=== PATIENT | male | born 1945 | race Caucasian/White ===

== ENCOUNTER 2016-08-14 13:35 | Inpatient (IN) | payer MEDICARE ==
[~2016-08-14] VITALS: Ht 175.2 cm; Wt 94.5 kg
--- NOTE | ~2016-08-14 | CON ---
[place], [place] REPORT OF CONSULTATION NAME: CORNELIO HUGHES UNIT #: [id number] ROOM: 412 DOCTOR: XENIA ORTEGASOPHIA BIRTHDATE: [birth year] DATE: 08/16/16 ATTEND. PHYS.: JACOBY HAMMER DO HISTORY OF PRESENT ILLNESS: 71-year-old male has presented with complaint of several bowel movements before his admission and he has had up to five bowel movements. The frequency of bowel movements has reorganized and he is not having any bowel movements any longer. There was no blood in the stool. He has had a colonoscopy apparently six months ago. PAST MEDICAL HISTORY: Esophageal reflux disease, degenerative joint disease, gout, cerebrovascular accident, hypertension, hyperlipidemia, macrocytic anemia. PAST SURGICAL HISTORY: Endarterectomy, ear. SOCIAL HISTORY: Smoker and has not drank alcohol. FAMILY HISTORY: Noncontributory. ALLERGIES: To no known medications. MEDICATIONS: List has been reviewed including aspirin and Omeprazole. REVIEW OF SYSTEMS: HEENT: Denies double vision or blurred vision. RESPIRATORY: Denies acute shortness of breath. CARDIOVASCULAR: Denies acute chest pain. DIGESTIVE SYSTEM: No hematemesis. Resolved diarrhea. PHYSICAL EXAMINATION: VITAL SIGNS: Stable. GENERAL: Obese patient. HEENT: Head normocephalic, nontraumatic. Mouth and buccal mucosa benign. NECK: Supple. No thyromegaly. No cervical lymphadenopathy. CHEST: Symmetric anatomy. Decreased air entry in general. HEART: Normal sinus rhythm. No gallop or murmur. ABDOMEN: Obese, large, soft. No hepatosplenomegaly. Bowel sounds present. No pulsatile mass. EXTREMITIES: No cyanosis. No pedal edema. NEUROLOGIC: Alert and oriented to time, place, person. Labs and records reviewed. H&H remains about 11 and 44. Stool culture has been negative. Basic metabolic panel - potassium 3.5, BUN and creatinine 19 and 1.5. Ova and parasite have been negative. C-diff has been negative. Hemoglobin A1C 6.5. Basic metabolic panel has been reassessed periodically. IMPRESSION: Three days of diarrhea likely has to do with a viral gastroenteritis, hyperglycemia, obesity, GERD, hypertension, hyperlipidemia, peripheral neuropathy, gout. All has been recognized. Other adjunctive diagnoses as outlined in past medical history and past surgical history. PLAN AND DISCUSSION: We are going to consider discharge of patient and follow up as outpatient. Should his diarrhea recur, then reassessment. He had colonoscopy six months ago and has been told it was normal. We are going to be satisfied with the answer that we have. Thank you very much indeed. [place], [place] REPORT OF CONSULTATION NAME: CORNELIO HUGHES UNIT #: [id number] ROOM: [facility] DOCTOR: XENIA ORTEGA,[facility] BIRTHDATE: [birth year] M.D. [f rep dict dr] CM:CONSTR:REPORT OF CONSULTATION 1530 [place] 08/19/16 1602 JERMAIN LEUNG.SB
[~2016-08-14 13:35] MED LIST: ALLOPURINOL300 MG PO; AMLODIPINE BESY1 TAB PO; ASPIRIN325 MG PO; ATENOLOL50 M1 PO; CLONIDINE0.3 MG PO; D-1000 185 MG-11 TAB PO; FISH OIL 1,2001 EAC1 PO; HYDROCHLOROTHIA25 M1 PO; NEURONTIN300 MG PO; NORCO 5-325 TA1 EACH PO; NORCO 7.5-3251 EACH PO; OMEPRAZOLE20 M2 PO; PHARMASSURE FO0.4 MG PO; SIMVASTATIN20 MG PO; TERAZOSIN HCL10 M1 PO
[2016-08-14 13:40] VITALS: BP 185/68
[2016-08-14 14:28] LABS: BASO % 0.3 % (0.0-1.0); EOS # 0.1 10*3/uL (0.0-0.4); EOS % 1.3 % (1.0-4.0); HEMATOCRIT 46.3 % (42.0-52.0); HEMOGLOBIN 15.7 g/dl (14.0-18.0); IG # 0.1 10*3/uL (0.0-0.1); LYMPH # 1.2 10*3/uL (1.3-4.4); LYMPH % 16.2 % (27.0-41.0); MEAN CELL VOLUME 88.4 fl (80.0-94.0); MEAN CORPUSCULAR HGB CONC 33.9 g/dl (33.0-37.0); MEAN PLATELET VOLUME 10.4 fl (9.6-12.3); MONO # 0.4 10*3/uL (0.1-1.0); MONO % 5.6 % (3.0-9.0); NEUT # 5.4 10*3/uL (2.3-7.9); NEUT % 75.9 % (47.0-73.0); PLATELET COUNT AUTOMATED 202 10*3/uL (130-400); RED BLOOD COUNT 5.24 10*6/uL (4.50-5.90); WHITE BLOOD COUNT 7.2 10*3/uL (4.8-10.8)
[2016-08-14 14:43] LABS: ALBUMIN 2.6 gm/dl (3.1-4.5); BILIRUBIN, TOTAL 0.4 mg/dl (0.2-1.0); TOTAL PROTEIN 7.3 gm/dL (6.4-8.2)
[2016-08-14 14:59] VITALS: BP 161/63
[2016-08-14 16:10] VITALS: BP 186/56
[2016-08-14 20:00] VITALS: BP 188/50
[2016-08-15] VITALS: BP 154/62
[2016-08-15 07:15] LABS: BASO % 0.1 % (0.0-1.0); HEMOGLOBIN 11.8 g/dl (14.0-18.0); IG # 0.2 10*3/uL (0.0-0.1); LYMPH % 12.3 % (27.0-41.0); MEAN CELL VOLUME 89.4 fl (80.0-94.0); MEAN CORPUSCULAR HGB 30.6 pg (27.0-31.0); MEAN CORPUSCULAR HGB CONC 34.3 g/dl (33.0-37.0); MEAN PLATELET VOLUME 10.2 fl (9.6-12.3); MONO # 0.1 10*3/uL (0.1-1.0); MONO % 1.6 % (3.0-9.0); NEUT % 84.2 % (47.0-73.0); RED BLOOD COUNT 3.85 10*6/uL (4.50-5.90); WHITE BLOOD COUNT 8.3 10*3/uL (4.8-10.8)
[2016-08-15 07:16] LABS: HEMATOCRIT 34.4 % (42.0-52.0); PLATELET COUNT AUTOMATED 264 10*3/uL (130-400)
[2016-08-15 07:30] LABS: ALBUMIN 2.4 gm/dl (3.1-4.5); MAGNESIUM 1.4 mg/dL (1.5-2.1)
[2016-08-15 07:40] LABS: BILIRUBIN, TOTAL 0.3 mg/dl (0.2-1.0); PHOSPHOROUS 1.6 mg/dL (2.5-4.9); THYROID STIM HORMONE (HS) 0.243 uIU/ml (0.358-4.75); TOTAL PROTEIN 6.7 gm/dL (6.4-8.2)
[2016-08-15 07:57] LABS: FOLIC ACID 3.2 ng/mL (>5.38); HEMOGLOBIN A1c 6.5 % (4.8-5.6)
[2016-08-15 08:00] VITALS: BP 188/68
[2016-08-15 16:00] VITALS: BP 129/47
[2016-08-16] VITALS: BP 117/52
[2016-08-16 06:42] LABS: POTASSIUM 3.5 mmol/L (3.5-5.1)
[2016-08-16 08:00] VITALS: BP 128/58
[2016-08-16] MEDS ORDERED: NATURE'S BLEND F1 MG PO (11:29)
[2016-08-16] MEDS ORDERED: CLONIDINE HCL0.3 MG PO (11:29)
[2016-08-16] MEDS ORDERED: KLOR-CON 1010 ME1 PO (11:29)
== END 2016-08-16 12:20 | disposition home or self-care (01) | DRG 391 ==
LOC: ED 13:35 → 4E 15:19 → EDHOLD 15:19 → 4E 15:35
PROVIDERS: Emergency Medicine; Internal Medicine
DX: A08.4 Viral intestinal infection, unspecified (principal); N17.0 Acute kidney failure with tubular necrosis; E43 Unspecified severe protein-calorie malnutrition; G62.9 Polyneuropathy, unspecified; D52.9 Folate deficiency anemia, unspecified; E86.0 Dehydration; J44.1 Chronic obstructive pulmonary disease with (acute) exacerbation; E87.6 Hypokalemia; R73.9 Hyperglycemia, unspecified; I10 Essential (primary) hypertension; E78.5 Hyperlipidemia, unspecified; M19.90 Unspecified osteoarthritis, unspecified site; K21.9 Gastro-esophageal reflux disease without esophagitis; M1A.9XX0 Chronic gout, unspecified, without tophus (tophi); R73.03 Prediabetes; F17.210 Nicotine dependence, cigarettes, uncomplicated; Z79.82 Long term (current) use of aspirin; Z71.6 Tobacco abuse counseling; Z79.1 Long term (current) use of non-steroidal anti-inflammatories (NSAID); Z86.73 Personal history of transient ischemic attack (TIA), and cerebral infarction without residual deficits; Z82.49 Family history of ischemic heart disease and other diseases of the circulatory system; Z79.899 Other long term (current) drug therapy; Z68.30 Body mass index [BMI] 30.0-30.9, adult; E66.9 Obesity, unspecified

== ENCOUNTER 2018-08-23 14:54 | Emergency (ER) | payer MEDICARE ==
[~2018-08-23 14:54] MED LIST changes: +ASPIRIN CHEWABL81 MG PO; -ASPIRIN325 MG PO; +CLONIDINE HCL0.3 MG PO; +KLOR-CON 1010 ME1 PO; +NATURE'S BLEND F1 MG PO
[2018-08-23 15:02] LABS: BILIRUBIN NEGATIVE (NEGATIVE); BLOOD 3+ (NEGATIVE); CLARITY CLOUDY (CLEAR); COLOR YELLOW (YELLOW); GLUCOSE NEGATIVE (NEGATIVE); KETONE NEGATIVE (NEGATIVE); LEUKO ESTERASE 3+ (NEGATIVE); NITRITE POSITIVE (NEGATIVE); PH 5.5 (5.0-9.0); UROBILINOGEN 0.2 E.U./dl (0.2-1.0)
[2018-08-23 15:08] LABS: RBC TNTC rbc/hpf (0-2); WBC TNTC wbc/hpf (0-5)
[2018-08-23 16:06] LABS: BASO % 0.4 % (0.0-1.0); EOS # 0.9 10*3/uL (0.0-0.4); EOS % 8.6 % (1.0-4.0); HEMATOCRIT 24.7 % (42.0-52.0); HEMOGLOBIN 7.2 g/dl (14.0-18.0); LYMPH # 1.6 10*3/uL (1.3-4.4); LYMPH % 15.1 % (27.0-41.0); MEAN CELL VOLUME 91.5 fl (80.0-94.0); MEAN CORPUSCULAR HGB 26.7 pg (27.0-31.0); MEAN CORPUSCULAR HGB CONC 29.1 g/dl (33.0-37.0); MONO # 0.7 10*3/uL (0.1-1.0); MONO % 6.6 % (3.0-9.0); NEUT # 7.4 10*3/uL (2.3-7.9); NEUT % 68.6 % (47.0-73.0); NUCLEATED RED BLOOD CELL 0.2 % (0.0-0.0); PLATELET COUNT AUTOMATED 227 10*3/uL (130-400); RED CELL DISTRI WIDTH 19.4 % (0-14.5); WHITE BLOOD COUNT 10.8 10*3/uL (4.8-10.8)
[2018-08-23 16:21] LABS: ALBUMIN 2.2 gm/dl (3.1-4.5); CREATININE 2.32 mg/dL (0.70-1.30); TOTAL PROTEIN 6.8 gm/dL (6.4-8.2)
[2018-08-23 16:28] VITALS: BP 138/58
[2018-08-23] MEDS ORDERED: CIPRO500 MG PO (17:36)
[2018-09-06] MEDS ORDERED: LIPITOR80 MG PO (07:53)
[2018-09-06] MEDS ORDERED: COREG12.5 M1 PO (07:54)
[2018-09-06] MEDS ORDERED: COUMADIN4 M2 PO (07:54)
[2018-09-06] MEDS ORDERED: ALBUTEROL2.5 MG/0.5 INH (07:55)
[2018-09-06] MEDS ORDERED: IMDUR SA30 MG PO (07:56)
[2018-09-06] MEDS ORDERED: LASIX20 MG PO (07:56)
[2018-09-06] MEDS ORDERED: ZESTRIL10 MG PO (07:56)
[2018-09-06] MEDS ORDERED: MELATONIN5 M1 SL (07:57)
[2018-09-06] MEDS ORDERED: FLOMAX0.4 MG PO (07:58)
[2018-09-06] MEDS ORDERED: MILK OF MA400 MG/5 M PO (07:58)
[2018-09-06] MEDS ORDERED: TYLENOL325 M1 PO (07:59)
[2018-09-06] MEDS ORDERED: VISTARIL25 MG PO (07:59)
[2018-09-06] MEDS ORDERED: NOVOLOG100 UNIT/1 SQ (08:00)
[2018-10-11] MEDS ORDERED: WARFARIN SODIUM3 MG PO (07:44)
[2018-10-11] MEDS ORDERED: ALLOPURINOL100 MG PO (07:45)
[2018-10-11] MEDS ORDERED: ARGINAID POWDE1 EACH PO (07:46)
[2018-10-11] MEDS ORDERED: COREG25 MG PO (07:47)
[2018-10-11] MEDS ORDERED: CYMBALTA30 MG PO (07:49)
[2018-10-11] MEDS ORDERED: FINASTERIDE5 M1 PO (07:53)
[2018-10-11] MEDS ORDERED: HYDRALAZINE HYD50 MG PO (07:54)
[2018-10-11] MEDS ORDERED: IMODIUM A-D2 M2 PO (07:54)
[2018-10-11] MEDS ORDERED: NORVASC2.5 MG PO (07:56)
[2018-10-11] MEDS ORDERED: Ipratropium Brom3 ML INH (07:59)
[2018-10-11] MEDS ORDERED: SANTYL30 GM T (08:00)
[2018-10-11] MEDS ORDERED: [UNRECOGNIZED DRUG - OTHER] T (08:00)
== END 2018-08-23 17:47 ==
LOC: ED 14:54
PROVIDERS: Emergency Medicine; Nurse Practitioner Family
DX: T83.518A Infection and inflammatory reaction due to other urinary catheter, initial encounter (principal); N39.0 Urinary tract infection, site not specified; S37.33XA Laceration of urethra, initial encounter; I25.2 Old myocardial infarction; K21.9 Gastro-esophageal reflux disease without esophagitis; E78.5 Hyperlipidemia, unspecified; I10 Essential (primary) hypertension; G62.9 Polyneuropathy, unspecified; F17.200 Nicotine dependence, unspecified, uncomplicated; Z79.899 Other long term (current) drug therapy; Z79.82 Long term (current) use of aspirin; Z86.73 Personal history of transient ischemic attack (TIA), and cerebral infarction without residual deficits; Y84.6 Urinary catheterization as the cause of abnormal reaction of the patient, or of later complication, without mention of misadventure at the time of the procedure; Y92.128 Other place in nursing home as the place of occurrence of the external cause

== ENCOUNTER → 2018-10-11 | Outpatient (CLI) | payer MEDICARE ==
[2018-10-11] VITALS (13 sets, daily range): BP systolic 142–186; BP diastolic 59–89
[~2018-10-11] MED LIST changes: +ALBUTEROL2.5 MG/0.5 INH; +ALLOPURINOL100 MG PO; +ARGINAID POWDE1 EACH PO; +CIPRO500 MG PO; +COREG12.5 M1 PO; +COREG25 MG PO; +COUMADIN4 M2 PO; +CYMBALTA30 MG PO; +FINASTERIDE5 M1 PO; +FLOMAX0.4 MG PO; +HYDRALAZINE HYD50 MG PO; +IMDUR SA30 MG PO; +IMODIUM A-D2 M2 PO; +Ipratropium Brom3 ML INH; +LASIX20 MG PO; +LIPITOR80 MG PO; +MELATONIN5 M1 SL; +MILK OF MA400 MG/5 M PO; +NORVASC2.5 MG PO; +NOVOLOG100 UNIT/1 SQ; +SANTYL30 GM T; +TYLENOL325 M1 PO; +VISTARIL25 MG PO; +WARFARIN SODIUM3 MG PO; +ZESTRIL10 MG PO; +[UNRECOGNIZED DRUG - OTHER] T
== END | disposition home or self-care (01) ==
LOC: TRNFUSION 01:49
DX: D64.9 Anemia, unspecified (principal); I50.89 Other heart failure

== ENCOUNTER 2018-10-29 09:53 | Emergency (ER) | payer MEDICARE ==
[~2018-10-29] VITALS: Ht 175.2 cm; Wt 115.7 kg
--- NOTE | ~2018-10-29 | EKG ---
[place], [place] ELECTROCARDIOGRAM REPORT NAME: CORNELIO HUGHES UNIT #: [id number] ROOM: DOCTOR: EPIPHANY DRAFT REPORT BIRTHDATE: [birth year] [facility] Test Date: 2018-10-29 Test Time: 11:05:20 Pat Name: CORNELIO HUGHES Department: Room: [facility] Gender: M [employer] Professor: Charisse Baez : 1945 Requested By: JERMAIN MOMIN Order Number: [id number] Reading MD: Gavino Sethi MD Measurements Intervals [place] Rate: 60 P: -12 [place]: 176 QRS: -74 QRSD: 129 T: 42 QT: 458 QTc: 458 Interpretive Statements Sinus rhythm RBBB and LAFB Electronically Signed On 10-29-2018 11:53:23 PDT by Gavino Sethi MD CM:EKGRPT:ELECTROCARDIOGRAM REPORT 1105 1153 JERMAIN GHOSH DRAFT REPORT JERMAIN SOLIS
--- NOTE | 2018-10-29 10:00 | NUR ---
Requested to view patient's wounds to his bilateral legs and that staff would have to remove dressings. Patient very adamant, does not want dressings removed, does not want any photographs taken. PA aware.
[2018-10-29 10:11] VITALS: BP 154/54
[2018-10-29 11:14] LABS: BASO # 0.1 10*3/uL (0.0-0.1); BASO % 0.6 % (0.0-1.0); EOS # 1.7 10*3/uL (0.0-0.4); EOS % 15.2 % (1.0-4.0); HEMATOCRIT 26.3 % (42.0-52.0); HEMOGLOBIN 7.9 g/dl (14.0-18.0); LYMPH # 2.3 10*3/uL (1.3-4.4); LYMPH % 20.2 % (27.0-41.0); MEAN CELL VOLUME 92.9 fl (80.0-94.0); MEAN CORPUSCULAR HGB 27.9 pg (27.0-31.0); MEAN PLATELET VOLUME 10.3 fl (9.6-12.3); MONO # 0.7 10*3/uL (0.1-1.0); MONO % 6.4 % (3.0-9.0); NEUT # 6.4 10*3/uL (2.3-7.9); NEUT % 57.1 % (47.0-73.0); PLATELET COUNT AUTOMATED 263 10*3/uL (130-400); RED BLOOD COUNT 2.83 10*6/uL (4.50-5.90); WHITE BLOOD COUNT 11.2 10*3/uL (4.8-10.8)
[2018-10-29 11:25] LABS: ACT PARTIAL THROMBO TIME 42.6 SECONDS (20.0-32.1); INTERNATIONAL NORM RATIO 2.2 (2.0-3.5)
[2018-10-29 11:28] LABS: ALBUMIN 2.3 gm/dl (3.1-4.5); ALKALINE PHOSPHATASE 196 U/L (45-117); BUN 52 mg/dl (7-24); CHLORIDE 113 mmol/L (98-107); CREATININE 2.07 mg/dL (0.70-1.30); LIPASE 88 U/L (73-393); POTASSIUM 4.2 mmol/L (3.5-5.1); SGOT/AST 30 IU/L (3-35); SGPT/ALT 69 U/L (12-78); SODIUM 142 mmol/L (136-145); TOTAL PROTEIN 6.6 gm/dL (6.4-8.2)
[2018-10-29 11:31] LABS: TROPONIN I < 0.015 ng/ml (<0.045)
--- NOTE | 2018-10-29 11:38 | NUR ---
YUAN FROM [email or web address] NOTIFIED THAT PT WILL BE RETURNING D/T HGB 7.9. DOES NOT MEET CRITERIA FOR ADMISSION.
== END 2018-10-29 11:39 ==
LOC: ED 09:53 → EDHOLD 11:09 → ED 11:39
PROVIDERS: Physician Assistant
DX: D64.9 Anemia, unspecified (principal); R19.7 Diarrhea, unspecified; F17.200 Nicotine dependence, unspecified, uncomplicated; Z79.899 Other long term (current) drug therapy; Z79.82 Long term (current) use of aspirin; Z79.01 Long term (current) use of anticoagulants

== ENCOUNTER → 2018-10-30 | Outpatient (CLI) | payer MEDICARE, MEDICAID ==
[2018-10-30] VITALS (8 sets, daily range): BP systolic 112–162; BP diastolic 54–84
[~2018-10-30] MED LIST changes: +'CLONIDINE0.1 MG PO; +CARAFATE1 G1 PO; +COUMADIN5 M2 PO; +Carafate1 GM/10 ML PO; +DAKIN'S473 ML T; +FEOSOL325 MG PO; +FLUVOXAMINE50 MG PO; +LASIX40 MG PO; +METOPROLOL SUC100 M1 PO; +OMNICEF300 MG PO; +POTASSIUM CHLO20 ME3 PO; +PROTONIX40 MG PO; +VITAMIN D32000 UNI1 PO
== END | disposition home or self-care (01) ==
LOC: TRNFUSION 03:54
DX: D64.9 Anemia, unspecified (principal); I10 Essential (primary) hypertension; E11.40 Type 2 diabetes mellitus with diabetic neuropathy, unspecified; M10.9 Gout, unspecified; Z87.891 Personal history of nicotine dependence

== ENCOUNTER 2018-12-12 16:08 | Inpatient (IN) | payer MEDICARE, MEDICAID ==
[~2018-12-12] VITALS: Ht 175.2 cm; Wt 106.7 kg
[2018-12-12] VITALS (7 sets, daily range): BP systolic 138–176; BP diastolic 42–70
--- NOTE | ~2018-12-12 | EKG ---
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
--- NOTE | ~2018-12-12 | O ---
[place], [place] OPERATIVE NOTE NAME: CORNELIO HUGHES UNIT #: [id number] ROOM: [facility] DOCTOR: SOPHIA MICHAELS MD BIRTHDATE: [birth year] DOS: 12/13/2018 REPORT: After this patient has presented with GI bleed, undergoing investigation. PROCEDURE: Today's procedure part of investigation is panendoscopy. PREMEDICATION: By anesthesia, Propofol. SCOPE: Olympus forward-viewing gastroscope Q10 video. REPORT: After putting the patient in left lateral position and application of lubricant to the scope, the scope was introduced. Thereafter, under direct visualization, advanced through the length of esophagus without difficulty. Gastric pouch was entered. Large volume of blood in the gastric pouch was noticed, suctioned out. Meticulously, hemorrhagic gastritis, hiatal hernia seen. Duodenum was entered. Giant duodenal ulcer and numerous ulcerations in first, second and third part of the duodenum was seen. Photographed. No biopsies obtained, necrotic giant ulcer in the duodenum was photographed. Air was suctioned out. The patient was extubated, tolerated the procedure well. IMPRESSION: Upper GI bleed, hemorrhagic gastritis, presence of large volume of blood in the stomach, hiatal hernia, giant duodenal ulcer, multiple duodenal ulcers. PLAN AND DISCUSSION: Aggressive ulcer therapy, Protonix drip starting Sandostatin 50 mcg loading followed with 25 mcg per hour x 48 hours, aggressive sucralfate therapy 2 grams, slurry q.6 hours to be alternated with q.6h., Gaviscon 15 mL; diet, ice cream, milk shake, ice water. Follow up on H and H, correction of electrolytes, IV supportive hydration for renal management. Nephrology consult, Cardiology consult. Case was discussed with Dr. Perdue the hospitalist service. [place], [place] OPERATIVE NOTE NAME: CORNELIO HUGHES UNIT #: [id number] ROOM: [facility] DOCTOR: SOPHIA MICHAELS MD BIRTHDATE: [birth year] SOPHIA MICHAELS MD CM:OPRECORD:OPERATIVE NOTE 1655 09 SOPHIA MICHAELS MD 12/16/18 1427 interface
--- NOTE | ~2018-12-12 | PR ---
[place], [place] PROGRESS NOTE NAME: CORNELIO HUGHES [facility] #: [id number] UNIT #: [id number] ROOM: 425 DOCTOR: ADDI QUEVEDO DPM BIRTHDATE: [birth year] DOS: 12/20/2018 SUBJECTIVE: This patient is seen for followup of a chronic left heel ulceration. He admits to some mild pain in the area. OBJECTIVE: Pedal pulses are decreased bilaterally. There is diffuse edema noted in bilateral lower extremities with negative Homans sign. There is a chronic wound noted at the plantar posterior left heel with no bone exposed. No surrounding erythema or increased temperature. No purulent drainage noted. No open areas noted on the right foot. ASSESSMENT: Chronic left heel ulcer. PLAN: Evaluation and management. Continue offloading. Continue with wound care. Continue to follow the patient while in the hospital. ADDI QUEVEDO DPM CM:PNRAGHAV 1141 2256 ADDI QUEVEDO DPM 12/20/18 2254 interface
--- NOTE | ~2018-12-12 | EKG ---
[place], [place] ELECTROCARDIOGRAM REPORT NAME: CORNELIO HUGHES UNIT #: [id number] ROOM: [facility] DOCTOR: DAVINA DRAFT REPORT BIRTHDATE: [birth year] [facility] Test Date: 2018-12-18 Test Time: 02:30:12 Pat Name: CORNELIO HGUHES Department: Room: [place] [address] Gender: M Chief Embalmer: Jesus Irvin : 1945 Requested By: FERNANDO DORAN Order Number: [id number] Reading MD: Joanna Saleh MD Measurements Intervals [place] Rate: 45 P: 74 TN: 59 QRS: -65 QRSD: 165 T: 16 QT: 561 QTc: 486 Interpretive Statements Sinus bradycardia Atrial premature complex Short TN interval RBBB with LAFB Compared to ECG 12/13/2018 01:44:17 Atrial premature complex(es) now present Short TN interval now present Myocardial infarct finding no longer present Electronically Signed On 12-18-2018 17:32:37 PDT by Joanna Saleh MD CM:EKGRPT:ELECTROCARDIOGRAM REPORT 0230 1732 FERNANDO CARVAJAL DRAFT REPORT FERNANDO DORAN DO
--- NOTE | ~2018-12-12 | EKG ---
[place], [place] ELECTROCARDIOGRAM REPORT NAME: CORNELIO HUGHES UNIT #: [id number] ROOM: 503 DOCTOR: DAVINA DRAFT REPORT BIRTHDATE: [birth year] [facility] Test Date: 2018-12-12 Test Time: 17:39:42 Pat Name: CORNELIO HUGHES Department: Room: 503 Gender: M Billing Adjudicator: Charisse Baez : 1945 Requested By: JOVI JIMENEZ Order Number: [id number] Reading MD: Filomena Stapleton Measurements Intervals [place] Rate: 61 P: -2 [place]: 169 QRS: -69 QRSD: 141 T: 63 QT: 443 QTc: 447 Interpretive Statements Sinus rhythm RBBB and LAFB Compared to ECG 10/29/2018 11:05:20 No significant changes Electronically Signed On 12-13-2018 8:02:21 PDT by Filomena Stapleton CM:EKGRPT:ELECTROCARDIOGRAM REPORT [id number] JOVI GHOSH DRAFT REPORT JOVI JIMENEZ MD
--- NOTE | ~2018-12-12 | CON ---
[place], [place] REPORT OF CONSULTATION NAME: CORNELIO HUGHES UNIT #: [id number] ROOM: 425 DOCTOR: XENIA ORTEGASOPHIA BIRTHDATE: [birth year] DOS: GASTROENDOSCOPIC REPORT HISTORY OF PRESENT ILLNESS: This is a 73-year-old patient who has presented with chief complaint of guaiac positivity. The patient with anemia, who came to the Emergency Room, GI bleed, prolonged INR. INR has not been corrected. Previously we have reversed subtherapeutic INR with fresh frozen plasma, added vitamin K. Hemoglobin of 6. He has been addressed with transfusion. PAST MEDICAL HISTORY: BPH, arthritis, anemia, GI bleed, hypertension, hyperlipidemia, non-ST myocardial infarction. PAST SURGICAL HISTORY: Endarterectomy and ear surgery. SOCIAL HISTORY: Smoker actively nonalcohol consumer. FAMILY HISTORY: Noncontributory. ALLERGIES: No known medications. MEDICATIONS: List reviewed, which has been including iron, aspirin and warfarin. REVIEW OF SYSTEMS: HEENT: Denies double vision, blurred vision. RESPIRATORY: No shortness of breath. CARDIOVASCULAR: Denies chest pain. DIGESTIVE SYSTEM: Nauseated. PHYSICAL EXAMINATION: GENERAL: Frail patient. HEENT: Within normal limit. NECK: Supple, no thyromegaly, no cervical lymphadenopathy. CHEST: Symmetric anatomy, equal expansion. Decreased air entry. LUNGS: Few scattered rhonchi. HEART: Normal sinus rhythm, no gallop and no murmur. ABDOMEN: Obese, soft. No hepato-organomegaly. Bowel sounds, they are numerous small hematoma. EXTREMITIES: Ulceration of lower extremities 2+ pedal edema. Numerous scratch ny all over the body in addition to extremities, particularly numerous hematomas even extending to posterior thorax all noticed. NEUROLOGIC: Alert, orientation slow. LABORATORY DATA: Reviewed. Records reviewed. CBC, latest one H and H of 8 and 26, platelet of 195,000. Comprehensive metabolic panel is still in renal failure and H and H of 88 and 3.4, potassium 5.6. Labs and records have been reviewed. Prolonged INR has been reversed on emergency basis of fresh frozen plasma as well as vitamin K. [place], [place] REPORT OF CONSULTATION NAME: CORNELIO HUGHES UNIT #: [id number] ROOM: 425 DOCTOR: XENIA ORTEGA,SOPHIA BIRTHDATE: [birth year] PLAN AND DISCUSSION: We are going to proceed with endoscopy of upper tract. Other adjunctive diagnoses as outlined above in the past medical and surgical history. SOPHIA MICHAELS MD CM:CONSTR:REPORT OF CONSULTATION 1655 0805 NATTY MOORE MIS.LLR
--- NOTE | ~2018-12-12 | PR ---
[place], [place] PROGRESS NOTE NAME: CORNELIO HUGHES UNIT #: [id number] ROOM: [facility] DOCTOR: XENIA ORTEGASOPHIA BIRTHDATE: [birth year] DOS: 12/16/2018 HISTORY OF PRESENT ILLNESS: The patient has presented with GI bleed, was investigated endoscopically, was found to have a deep giant ulceration in the duodenum as well as numerous other ulcers in duodenum, gastritis, and bleeding. The patient was placed on aggressive ulcer management with Carafate and Protonix double dose alternated with Gaviscon, was placed on ice cream, milk shake liquids, Ensures, and H and H has been observed in ICU, so far we have been successful in management. We may increase some eggs and mashed potato would be adopted to his diet. His wounds are being managed. PAST MEDICAL HISTORY: Associated with GERD, CVA, gout, carotid stent, BPH, arthritis, anemia, diabetes mellitus, and hyperlipidemia. SOCIAL HISTORY: Nonsmoker, nonalcohol consumer since last year. LABORATORY DATA: Records reviewed. The latest CBC, H and H of 7.9 and 25 and will be followed to assure if he is bleeding, then we will transfuse renal failure, being addressed. BUN and creatinine 63 and 3.8. REVIEW OF SYSTEMS: HEENT: Denies double vision, blurred vision. RESPIRATORY: Denies acute shortness of breath. CARDIOVASCULAR: Denies chest pain. DIGESTIVE SYSTEM: Giant duodenal ulcer on aggressive ulcer therapy. PHYSICAL EXAMINATION: HEENT: Head normocephalic, nontraumatic. Mouth and buccal mucosa benign. NECK: Supple, no thyromegaly. CHEST: Symmetric anatomy, COPD. HEART: Normal sinus rhythm, no gallop, no murmur. ABDOMEN: Obese, soft. No hepato-organomegaly. Bowel sounds present. EXTREMITIES: Dressed. No cyanosis; however, edema and erythema was noticed. IMPRESSION: Giant duodenal ulcer, multiple duodenal ulcers as well. Gastritis, esophagitis. PLAN AND DISCUSSION: Continuation with the above management. Adding eggs and mashed potato to diet tomorrow. Follow up on H and H, transfusion if necessary. [place], [place] PROGRESS NOTE NAME: CORNELIO HUGHES UNIT #: [id number] ROOM: [facility] DOCTOR: XENIA ORTEGA,SOPHIA BIRTHDATE: [birth year] SOPHIA MICHAELS MD CM:PNTRANS 1938 3 SOPHIA MICHAELS MD 12/17/18 0303 interface
--- NOTE | ~2018-12-12 | CON ---
[place], [place] REPORT OF CONSULTATION NAME: CORNELIO HUGHES [facility] #: [id number] UNIT #: [id number] ROOM: [facility] DOCTOR: ORIANA CHEUNG DPM BIRTHDATE: [birth year] DOS: 12/14/2018 The patient is a 73-year-old male with chief complaint of an ulceration of the left heel. PAST MEDICAL HISTORY: Anemia, arthritis, benign prostatic hyperplasia, coronary artery disease, chronic anemia, diabetes, frequent falls, generalized weakness, GERD, gout, history of CVA, history of left carotid artery stent placement, hyperlipidemia, hypertension, non-ST elevated CA, peripheral neuropathy. PAST SURGICAL HISTORY: Carotid endarterectomy, ear surgery. SOCIAL HISTORY: Current smoker 1 pack a day for 50 years. Denies alcohol or illicit drug use. FAMILY HISTORY: Father at age 72, heart failure. Mother, history of DVT, CHF. ALLERGIES: No known allergies. PHYSICAL EXAMINATION: EXTREMITIES: Lower extremity examination diminished pedal pulses bilateral, decreased epicritic sensations, +2 pitting edema bilateral, full thickness ulceration left heel with fibrous tissue measuring approximately 5 cm diameter, 0.5 cm in depth. No evidence of deep sinus tract. No fluctuance or abscess. ASSESSMENT: Diabetic ulceration, left heel. PLAN: Evaluation and management. Culture was ordered of the left heel. Apply Betadine-soaked Adaptic, 4 x 4's, Kerlix and Nikolay bandage daily after cleaning with saline. The patient will be reevaluated tomorrow by the resident. ORIANA CHEUNG DPM CM:CONSTR:REPORT OF CONSULTATION 1024 12/14/18 1044 interface
--- NOTE | ~2018-12-12 | CON ---
[place], [place] REPORT OF CONSULTATION NAME: CORNELIO HUGHES UNIT #: [id number] ROOM: [facility] DOCTOR: ABI ORTEGA,CÉSAR BIRTHDATE: [birth year] DOS: 12/13/2018 REASON FOR CONSULTATION: Cardiac evaluation with history of coronary artery disease and mild cardiomyopathy. HISTORY OF PRESENT ILLNESS: The patient is a 73-year-old gentleman with history of CAD, hypertension, chronic kidney disease, diabetes, who was brought to the Emergency Room because of his worsening of kidney function. He was seen by washer repairman and was referred to the Emergency Room due to his worsening kidney function. The patient found to be severely anemic and was admitted into the hospital and he received 2 units of packed red cells and Cardiology consulted for further recommendations. His INR was supratherapeutic and the Coumadin was held. He denies any chest pain or shortness of breath. He is complaining of being some fatigued. No nausea or vomiting. No fever and chills. No PND or orthopnea. No bladder or bowel symptoms. No cough or hemoptysis. No musculoskeletal symptoms. REVIEW OF SYSTEMS: Review of 10 systems negative except as mentioned above. PAST MEDICAL HISTORY: 1. Coronary artery disease. 2. Hypertension. 3. Diabetes type 2. 4. Chronic kidney disease. 5. History of CVA. 6. Gout. 7. Acid reflux. 8. Chronic anemia. 9. Peripheral vascular disease. 10. Benign prostatic hypertrophy. 11. Frequent falls. 12. Peripheral vascular disease. PAST SURGICAL HISTORY: History of carotid endarterectomy, history of ear surgery. SOCIAL HISTORY: The patient does not drink, does not use drugs, but does smoke. ALLERGIES: Reviewed. FAMILY HISTORY: Father at age 72 from heart failure. Mother has a heart failure and DVT. HOME MEDICATIONS: Reviewed. His cardiac medications include aspirin, atorvastatin, carvedilol, warfarin, lisinopril, isosorbide, hydralazine, and amlodipine. PHYSICAL EXAMINATION: VITAL SIGNS: Blood pressure 160/74, pulse 66, respiratory rate was 20, weight 106.7 kg, BMI 34.8. [place], [place] REPORT OF CONSULTATION NAME: CORNELIO HUGHES UNIT #: [id number] ROOM: [facility] DOCTOR: CÉSAR ALEX MD BIRTHDATE: [birth year] GENERAL: Alert, comfortable, in no acute distress. HEENT: Pupils are round and equal. No jaundice. Tongue was moist and pharynx clear. NECK: Supple. No distended neck veins. No carotid bruit. CHEST: Symmetrical, nontender. LUNGS: Clear to auscultation bilaterally. HEART: Regular rhythm, no S3, no palpable thrills. ABDOMEN: Benign, nontender. Bowel sounds normal. EXTREMITIES: Showed trace to 1+ edema. Distal pulses palpable. SKIN: Warm and dry. No cyanosis, no clubbing. RECTAL: Deferred. GENITOURINARY: Deferred. NEUROLOGIC: The patient is alert with no focal neurologic deficit. REVIEW OF THE DIAGNOSTIC TESTS: EKG, labs, and imaging studies were reviewed. Pertinent labs include hemoglobin on admission of 6.4; today, it was 8.6. WBC count 12.3 thousand, platelets 195,000. Potassium 5.6, creatinine 3.48. Cardiac troponins are negative x 3. INR was 5.2 today. Echo from June 2018 reviewed, showed trace MR and TR with EF 45-50%. Stress test from June 2018 showed fixed inferior defect with EF of 61%. IMPRESSION: 1. Severe anemia, status post transfusion of packed red blood cells. 2. Acute renal failure, on top of chronic kidney disease. 3. Coronary artery disease, I would get his details. 4. Peripheral vascular disease, status post left carotid endarterectomy. 5. Right bundle-branch block. 6. Hypertension. 7. History of cerebrovascular accident. 8. Coagulopathy. RECOMMENDATIONS: 1. The patient denies any chest pain. His cardiac enzymes are unremarkable. EKG showed sinus rhythm with right bundle-branch block, no ischemic changes. 2. No further cardiac testing recommended at this time. He is to resume his home medications including Coreg, Imdur, and Lipitor. 3. Cardiology will sign off and we will see the patient as needed. 4. No family at bedside at the time of examination. [place], [place] REPORT OF CONSULTATION NAME: CORNELIO HUGHES UNIT #: [id number] ROOM: [facility] DOCTOR: ABI ORTEGA,CÉSAR BIRTHDATE: [birth year] CÉSAR ALEX MD CM:CONSTR:REPORT OF CONSULTATION 1212 12/13/18 1856 interface
--- NOTE | ~2018-12-12 | EKG ---
[place], [place] ELECTROCARDIOGRAM REPORT NAME: CORNELIO HUGHES UNIT #: [id number] ROOM: 503 DOCTOR: DAVINA DRAFT REPORT BIRTHDATE: [birth year] [facility] Test Date: 2018-12-12 Test Time: 21:28:05 Pat Name: CORNELIO HUGHES Department: Room: 503 Gender: M Automobile Spring Repairer: Charisse Baez : 1945 Requested By: EZRA ARROYO Order Number: [id number] Reading MD: Filomena Stapleton Measurements Intervals [place] Rate: 60 P: -36 [place]: 195 QRS: -73 QRSD: 125 T: 36 QT: 453 QTc: 453 Interpretive Statements Sinus rhythm Probable left atrial enlargement Right bundle branch block Inferior infarct, old Baseline wander in lead(s) V4 Compared to ECG 10/29/2018 11:05:20 Myocardial infarct finding now present Left anterior fascicular block no longer present Electronically Signed On 12-13-2018 8:05:02 PDT by Filomena Stapleton CM:EKGRPT:ELECTROCARDIOGRAM REPORT [id number] [phone] EZRA GHOSH DRAFT REPORT EZRA ARROYO
--- NOTE | ~2018-12-12 | POSTOPNOTE ---
[place], [place] POSTOPERATIVE PROGRESS NOTE NAME: CORNELIO HUGHES UNIT #: [id number] ROOM: [facility] DOCTOR: SOPHIA MICHAELS MD BIRTHDATE: [birth year] DATE: 12/13/18 GI NOTE POSTOP UPPER GI PROC/FINDINGS: UPPER GI PROCEDURE/SURGERY: ESOPHAGASTRODUODENOSCOPY UPPER GI FINDINGS: UPPER GI BLEED, HEMORRHAGIC GASTRITIS, PRESENCE OF LARGE VOLUME OF BLOOD IN THE STOMACH, HIATAL HERNIA, GIANT DUODENAL ULCER, MULTIPLE DUODENAL ULCERS SOPHIA MICHAELS MD CM:POSTOPN 1555 1555 SOPHIA MICHAELS MD 12/16/18 1557 NATTY MOORE [facility].R
--- NOTE | ~2018-12-12 | PR ---
[place], [place] PROGRESS NOTE NAME: [id number] UNIT #: [id number] ROOM: 425 DOCTOR: SOPHIA MICHAELS MD BIRTHDATE: [birth year] DOS: 12/18/2018 SUBJECTIVE: This gentleman has presented with morbid obesity, acute renal failure, GI bleed, melanotic stool, in the ICU, being managed. He has been endoscopically assessed and was found to have multi-duodenal ulcers in addition to a very necrotic giant ulcer in duodenum and the anatomy of the bulb. The patient had significant drop in H and H, and therefore was transfused, stabilized, was treated with Protonix as well as Carafate and therefore kept on a liquid diet and allowed to have a maximal benefit of PPI therapy and sucralfate therapy and in addition to Gaviscon q. 6 hours alternating with Protonix. His status is generally improved. REVIEW OF SYSTEMS: In general: HEENT: Denies double vision, blurred vision. RESPIRATORY: Denies acute shortness of breath. Improvement of shortness of breath. CARDIOVASCULAR: Denies chest pain. DIGESTIVE SYSTEM: Some nausea, abdominal pain. PHYSICAL EXAMINATION: VITAL SIGNS: Stable. HEENT: Head normocephalic, nontraumatic. Mouth and buccal mucosa benign. NECK: Supple, no thyromegaly. CHEST: Symmetric anatomy. Few rhonchi. HEART: Normal sinus rhythm, no gallop, no murmur. ABDOMEN: Morbidly obese, large, soft. No hepato-organomegaly. Bowel sounds present. No pulsatile mass. EXTREMITIES: Edema and stasis dermatitis of scratch ny on the skin was noticed. NEUROLOGIC: Appears to be more alert and oriented. LABORATORY DATA: Labs reviewed. Records reviewed. IMPRESSION: Peptic ulcer disease, multi-duodenal ulcers and necrotic duodenal ulcers, all has been recognized. PLAN AND DISCUSSION: We are going to continue with aggressive ulcer therapy. Meanwhile, we are going to increase his diet to GERD bland diet. [place], [place] PROGRESS NOTE NAME: CORNELIO HUGHES UNIT #: [id number] ROOM: 425 DOCTOR: SOPHIA MICHAELS MD BIRTHDATE: [birth year] SOPHIA MICHAELS MD CM:PNTRANS [id number] T: SOPHIA MICHAELS MD 01/01/19 0804 NATTY MOORE [facility].R
--- NOTE | ~2018-12-12 | CON ---
[place], [place] REPORT OF CONSULTATION NAME: [facility] [id number] UNIT #: [id number] ROOM: 425 DOCTOR: NGUYEN PANCHAL,MAY BIRTHDATE: [birth year] DOS: 12/15/2018 HISTORY OF PRESENT ILLNESS: The patient is a 73-year-old male who was admitted from [facility] on 12/12 for anemia and a positive guaiac. He was scoped by Dr. Decker on 12/12 and was found to have an upper gastrointestinal bleed with hemorrhagic gastritis and hiatal hernia and a giant duodenal ulcer and multiple other duodenal ulcers. He is now on liquid diet, octreotide, etc., per surgery. ID was consulted as the patient had systemic pruritus, which he states he has had for some time and there was some concern for scabies. The patient was also started on vancomycin and Zosyn today for a right upper back abscess. Surgery has been consulted to Figu[place]a felton. The patient's admitting cultures showed a positive MRSA screen of the nares. Admitting urine culture had Proteus. Cultures were also obtained from a left heel ulcer that he had yesterday, which is growing moderate gram-negative bacilli. Length of time he has had the left heel ulcer is unknown. He has been afebrile during his hospitalization. The patient has generalized pain with movement. No chills. He is complaining of hunger. He is on a milkshake diet. No shortness of breath. He has significant systemic edema. Again, systemic pruritus for an unknown period of time. He has generalized pain with movement. PAST MEDICAL HISTORY: Anemia, arthritis, BPH, coronary artery disease, chronic anemia, diabetes, frequent falls, GERD, gout, CVA, left common carotid stent placement, hyperlipidemia, hypertension, non-ST elevated [place], peripheral neuropathy, carotid endarterectomy, ear surgery. SOCIAL HISTORY: He quit smoking in July of 2017, approximately a pack per day for 50 years. No alcohol or illicit drug use. He has been residing at [place] since spring of this year . FAMILY MEDICAL HISTORY: Father at the age of 72 of heart failure. His mother also had DVT and CHF. ALLERGIES: No known drug allergies. CURRENT MEDICATIONS: Protonix, vancomycin, Zosyn, DuoNeb, folic acid, Luvox, vitamin D, Carafate, Imdur, Gaviscon, Protonix, octreotide, Catapres, Flomax, Proscar, Ferrlecit, Cymbalta, Coreg, Lipitor, Zyloprim, hydrocortisone, Vistaril, Restoril, milk of mag, [place]. REVIEW OF SYSTEMS: As above in history of present illness, also complains of pain in the left heel. LABORATORY DATA: WBC is 11.2, platelets 159. BUN is 73, creatinine 3.12. PHYSICAL EXAMINATION: VITAL SIGNS: Temperature 98.2, pulse 73, respirations 20, BP 156/54. GENERAL: A 73-year-old male, in no acute distress, nontoxic in appearance. HEAD, EYES, EARS, NOSE AND THROAT: Normocephalic. Pupils are equal, round, reactive to light. Nares with no active discharge. Mucous membranes pink and [place], [place] REPORT OF CONSULTATION NAME: CORNELIO HUGHES UNIT #: [id number] ROOM: 425 DOCTOR: NGUYEN PANCHAL,MAY BIRTHDATE: [birth year] moist. No thrush. NECK: Supple. LUNGS: Clear to auscultation bilaterally. Respirations even and unlabored. HEART: Regular rhythm. No murmur appreciated. ABDOMEN: Soft, obese, nontender. Positive bowel sounds. EXTREMITIES: +3 edema of all extremities. Left heel ulcer is approximately 50% fibrotic. There is odor noted. Appears to have some mild surrounding erythema. Difficult to assess, he has been covered in Betadine per Podiatry. No active discharge from the heel. SKIN: Right upper back with indurated, fluctuant and tender area, possibly abscess, little scabbing over the surface, no active discharge. Skin is otherwise, warm, dry, pale. Numerous areas of excoriation of the upper extremities, lower extremities none, though not any noted in skin fold such as wrist creases between fingers along the lines of his under garment, etc. ASSESSMENT: We were consulted for possible scabies, which I do not believe the patient has. He does have a left heel ulcer, which appears to be infected. Cultures are growing gram-negative rods. He also has possible right upper back abscess, for which surgery has been consulted for an I and D. Continue the vancomycin and Zosyn. Follow up on cultures and adjust antibiotics accordingly. May ABDULKADIR CEDILLO MARISABEL BRIGHT MD CM:CONSTR:REPORT OF CONSULTATION 1532 12/30/18 0751 interface
[~2018-12-12 16:08] MED LIST changes: -'CLONIDINE0.1 MG PO; -CARAFATE1 G1 PO; -COUMADIN5 M2 PO; -Carafate1 GM/10 ML PO; -DAKIN'S473 ML T; -FEOSOL325 MG PO; -FLUVOXAMINE50 MG PO; -LASIX40 MG PO; -METOPROLOL SUC100 M1 PO; -OMNICEF300 MG PO; -POTASSIUM CHLO20 ME3 PO; -PROTONIX40 MG PO; -VITAMIN D32000 UNI1 PO
--- NOTE | 2018-12-12 16:50 | NUR ---
PT ASKING FOR SOMETHING FOR ITCHING ALL OVER. PT IS SCRATCHIG AT SKIN AND HAS SCABS ALL OVER FROM THIS.
[2018-12-12 17:40] LABS: HEMATOCRIT 21.3 % (42.0-52.0); MEAN CORPUSCULAR HGB 27.9 pg (27.0-31.0); MEAN PLATELET VOLUME 10.2 fl (9.6-12.3); PLATELET COUNT AUTOMATED 203 10*3/uL (130-400); RED BLOOD COUNT 2.29 10*6/uL (4.50-5.90); RED CELL DISTRI WIDTH 19.2 % (0-14.5); WHITE BLOOD COUNT 11.3 10*3/uL (4.8-10.8)
[2018-12-12 17:42] LABS: HEMOGLOBIN 6.4 g/dl (14.0-18.0)
--- NOTE | 2018-12-12 17:42 | NUR ---
HGB 6.4 DR JIMENEZ NOTIFIED
[2018-12-12 17:54] LABS: ALBUMIN 2.2 gm/dl (3.1-4.5); ALKALINE PHOSPHATASE 57 U/L (45-117); BUN 91 mg/dl (7-24); CHLORIDE 113 mmol/L (98-107); CREATININE 3.81 mg/dL (0.70-1.30); POTASSIUM 5.6 mmol/L (3.5-5.1); SGOT/AST 16 IU/L (3-35); SGPT/ALT 17 U/L (12-78); SODIUM 140 mmol/L (136-145)
[2018-12-12 17:55] LABS: ACT PARTIAL THROMBO TIME 68.4 SECONDS (20.0-32.1)
[2018-12-12 17:57] LABS: BASOPHILS 2 % (0-1); OVALOCYTES FEW; PLATELET SUFFICIENCY NORMAL (NORMAL); TOTAL CELLS COUNTED 100 #CELLS
--- NOTE | 2018-12-12 17:57 | NUR ---
PICTURES WERE TAKEN OF THE PATIENTS HEELS RT/LT. PATIENTS HAS MULTIPLE WOUNDS TO BODY. PLEASE SEE WOUND INTERVENTION SCREEN. THE PATIENT REFUSED PICTURES EVERYWHERE ELSE.
--- NOTE | 2018-12-12 18:00 | NUR ---
INR 5.8
[2018-12-12 18:01] LABS: INTERNATIONAL NORM RATIO 5.8 (2.0-3.5)
[2018-12-12 18:06] LABS: TROPONIN I < 0.015 ng/ml (<0.045)
--- NOTE | 2018-12-12 18:30 | NUR ---
A 73, admitted to 5E, under the services of GEOVANNY Werner DO with a diagnosis of ANEMIA, UREMIA, ACUTE ON CHRONIC KIDNEY INJURY. Chief complaint is WOUNDS. Patient arrived via ambulance from ER. Monitor applied. Initial assessment completed. Vital signs taken and recorded. GEOVANNY WERNER DO notified of admission to the unit. Orders received. See assessment for past medical history, medications and allergies. Patient and/or family oriented to unit. [facility] visitation policy reviewed. Clothing/patient valuable form completed. ABRAHAM ABREU
--- NOTE | 2018-12-12 18:50 | NUR ---
PT IS IN ACUTE DISTRESS R/T EXCESSIVE ITCHING AND VERY "COLD". BOTH PT AND NEPHEW (POA) IS ADAMANTLY REFUSING ANY WOUND MEASUREMENTS AT ALL. BOTH HEELS WERE PHOTOGRAPHED IN ER AND THEY WANT NO FURTHER DOCUMENTATION/MEASUREMENTS.
[2018-12-12] MEDS ORDERED: DAKIN'S473 ML T (18:52)
[2018-12-12] MEDS ORDERED: FEOSOL325 MG PO (18:53)
[2018-12-12] MEDS ORDERED: FLUVOXAMINE50 MG PO (18:54)
[2018-12-12] MEDS ORDERED: NATURE'S BLEND F1 MG PO (18:55)
--- NOTE | 2018-12-12 19:53 | NUR ---
MESSAGE LEFT WITH ANSWERING SERVICE REGARDING CONSULT WITH DR. CEDILLO.
--- NOTE | 2018-12-12 19:55 | NUR ---
SPOKE WITH DR. KELLEY REGARDING CONSULT ORDER. STATED SHE WAS AWARE OF CONSULT AND WILL SEE THE PATIENT.
--- NOTE | 2018-12-12 20:15 | NUR ---
SPOKE WITH DR NEVILLE REGARDING WOUND DRESSINGS TO HEELS. STATED HE WAS WANTING TO SEE WHAT WOUND CARE NURSE RECOMMENDS PRIOR TO GIVING DRESSING ORDERS.
--- NOTE | 2018-12-12 22:22 | NUR ---
SECOND UNIT OF BLOOD STARTING TO TRANSFUSE.
--- NOTE | 2018-12-12 22:39 | NUR ---
PATIENT BLADDER SCANNED FOR 30 CC URINE.
--- NOTE | 2018-12-12 23:00 | NUR ---
PATIENT REFUSING SCD AND TEDS. STATED HE IS FINALLY ABLE TO RELAX WITHOUT ITCHING AND SCRATCHING.
[2018-12-13] VITALS (9 sets, daily range): BP systolic 121–185; BP diastolic 44–80
[2018-12-13 00:42] LABS: BILIRUBIN NEGATIVE (NEGATIVE); BLOOD NEGATIVE (NEGATIVE); CLARITY CLEAR (CLEAR); COLOR YELLOW (YELLOW); GLUCOSE NEGATIVE (NEGATIVE); KETONE NEGATIVE (NEGATIVE); LEUKO ESTERASE 1+ (NEGATIVE); NITRITE NEGATIVE (NEGATIVE); PH 5.5 (5.0-9.0); UROBILINOGEN 0.2 E.U./dl (0.2-1.0)
[2018-12-13 01:02] LABS: URINE CREATININE RANDOM 69.4 mg/dL
[2018-12-13 01:17] LABS: WBC 16-20 wbc/hpf (0-5)
--- NOTE | 2018-12-13 01:35 | NUR ---
PATIENT MEDICATED WITH VISTARIL PER PRN ORDER AND PATIENT REQUEST FOR C/O ITCHING. PATIENT STATED HE FELT OKAY, BUT DID NOT WANT TO START ITCHING AGAIN.
[2018-12-13 06:20] LABS: ALBUMIN 2.2 gm/dl (3.1-4.5); POTASSIUM 5.6 mmol/L (3.5-5.1)
[2018-12-13 06:23] LABS: BASO # 0.1 10*3/uL (0.0-0.1); BASO % 0.5 % (0.0-1.0); EOS # 1.5 10*3/uL (0.0-0.4); EOS % 12.4 % (1.0-4.0); HEMATOCRIT 27.3 % (42.0-52.0); HEMOGLOBIN 8.6 g/dl (14.0-18.0); LYMPH # 2.1 10*3/uL (1.3-4.4); MEAN CELL VOLUME 92.9 fl (80.0-94.0); MEAN CORPUSCULAR HGB 29.3 pg (27.0-31.0); MEAN CORPUSCULAR HGB CONC 31.5 g/dl (33.0-37.0); MEAN PLATELET VOLUME 10.5 fl (9.6-12.3); MONO # 0.9 10*3/uL (0.1-1.0); MONO % 7.3 % (3.0-9.0); NEUT # 7.6 10*3/uL (2.3-7.9); NEUT % 61.8 % (47.0-73.0); NUCLEATED RED BLOOD CELL 0.2 % (0.0-0.0); PLATELET COUNT AUTOMATED 195 10*3/uL (130-400); RED BLOOD COUNT 2.94 10*6/uL (4.50-5.90); RED CELL DISTRI WIDTH 17.6 % (0-14.5); WHITE BLOOD COUNT 12.3 10*3/uL (4.8-10.8)
[2018-12-13 06:27] LABS: CREATININE 3.48 mg/dL (0.70-1.30); PHOSPHOROUS 3.5 mg/dL (2.5-4.9); THYROID STIM HORMONE (HS) 1.76 uIU/ml (0.358-4.75); TOTAL PROTEIN 6.2 gm/dL (6.4-8.2)
[2018-12-13 06:47] LABS: ACT PARTIAL THROMBO TIME 72.3 SECONDS (20.0-32.1)
[2018-12-13 06:51] LABS: INTERNATIONAL NORM RATIO 5.2 (2.0-3.5)
--- NOTE | 2018-12-13 06:51 | NUR ---
FR DHALIWAL NOTIFIED OF CRITICAL INR OF 5.2.
--- NOTE | 2018-12-13 07:20 | NUR ---
Report received by Aviva Gil RN. Currently at bedside report pt is being seen by Netta for wound care assessment. Notified by Aviva Gil that pt had refused wound care photos.
[2018-12-13 07:54] LABS: VITAMIN D, 25-HYDROXY 22.3 ng/mL (30-100)
--- NOTE | 2018-12-13 08:40 | NUR ---
Patient not available for Occupational Therapy evaluation as he is eating breakfast. Rupal Nugent OTR/l
--- NOTE | 2018-12-13 08:42 | NUR ---
CORNELIO HUGHES [id number] Please refer to the physician's history and physical for past medical history, comorbid conditions, and allergies. Diagnosis: ANEMIA UREMIA ACUTE ON CHRONIC KIDNEY INJURY Nura Score: 18,LOW OR NO RISK WOUND DESCRIPTIONS: Wound Number: 1 Location of the wound: left heel Type of wound: unstageable Thickness: Full Size: 5.7cm x 7.0cm x 0.1cm Tunneling: none Undermining: none Sinus Tract: none Presence of Exudate: Serosanguineous Amount: Light Color: Red, yellow, brown Odor: Foul Periwound Skin Appearance: Erythema Wound edges: approximated Pain (associated with wound): tender to touch How does patient state this happened? pt stated he has had this for a while and is getting treatment at the half-way Wound Number: 2 Right heel is red and blanchable at time of assessment. No open areas noted to drainage noted at time of assessment. Wound Number: 3 Location of the wound: left buttocks medial Type of wound: stage 2 Thickness: Partial Size: 0.5cm x 1.2cm x 0.1cm Tunneling: none Undermining: none Sinus Tract: none Presence of Exudate: Serosanguineous Amount: Light Color: Red Odor: None Periwound Skin Appearance: erythema Wound edges: approximated Pain (associated with wound): none at time of assessment How does patient state this happened? pt stated he believes this is a bed sore from him not being able to get out of bed much at the half-way Wound Number: 4 Location of the wound: right knee Thickness: Partial Size: 0.5cm x 0.5cm x 0.1cm Tunneling: none Undermining: none Sinus Tract: none Presence of Exudate: Serosanguineous Amount: Light Color: Red Odor: None Periwound Skin Appearance: erythema Wound edges: approximated Pain (associated with wound): none at time of assessment How does patient state this happened? pt stated this is from him scratching himself he states he cant help it Wound Number: 5 Location of the wound: distal middle back Thickness: Partial Size: 5.0cm 5.0cm x <0.1cm Tunneling: none Undermining: none Sinus Tract: none Presence of Exudate: serosanguineous Amount: Light Color: Red, dark purple Odor: None Periwound Skin Appearance: erythema, firmness Wound edges: approximated Pain (associated with wound): tender to touch How does patient state this happened? pt stated he is unsure how this started but is uncomfortable Wound Number: 6 Location of the wound: middle back proximal Type of wound: Thickness: Partial Size: 1.0cm x 1.0cm x 0.1cm Tunneling: none Undermining: none Sinus Tract: none Presence of Exudate: Serosanguineous Amount: Light Color: Red Odor: None Periwound Skin Appearance: erythema Wound edges: approximated Pain (associated with wound): none at time of assessment How does patient state this happened? pt stated this is from him scratching himself he states he cant help it Wound Number: 7 Location of the wound: left posterior shoulder Type of wound: Thickness: Partial Size: 4.0cm x 6.5cm x 0.1cm Tunneling: none Undermining: none Sinus Tract: none Presence of Exudate: Serous sanguineous Amount: Light Color: Red Odor: None Periwound Skin Appearance: erythema Wound edges: approximated Pain (associated with wound): none at time of assessment How does patient state this happened? pt stated this is from him scratching himself he states he cant help it Wound Number: 8 Location of the wound: left rib area Type of wound: Thickness: Partial Size: 0.1cm x 0.6cm x 0.1cm Tunneling: none Undermining: none Sinus Tract: none Presence of Exudate: Serous sanguineous Amount: Light Color: Red Odor: None Periwound Skin Appearance: Erythema Wound edges: approximated Pain (associated with wound): none at time of assessment How does patient state this happened? pt stated this is from him scratching himself he states he cant help it Wound Number: 9 Location of the wound: left lateral foot Type of wound: unstageable Thickness: Full Size: 0.5cm x 0.5cm x <0.1cm Tunneling: none Undermining: none Sinus Tract: none Presence of Exudate: Amount: None Color: Brown Odor: None Periwound Skin Appearance: Erythema Wound edges: approximated Pain (associated with wound): none at time of assessment How does patient state this happened? pt stated he is unsure how this happened but they are following with him at the half-way Wound Number: 10 Location of the wound: left buttocks lateral Type of wound: stage 2 Thickness: Partial Size: 0.6cm x 0.5cm x 0.1cm Tunneling: none Undermining: none Sinus Tract: none Presence of Exudate: Serosanguineous Amount: Light Color: Red Odor: None Periwound Skin Appearance: Normal Wound edges: approximated Pain (associated with wound): none at time of assessment How does patient state this happened? pt stated he believes this is a bed sore from him not being able to get out of bed much at the half-way Patient has multiple scratches over enitre body expect feet and periarea. Patient states that he can't stop itching. Right middle finger large amount of blood noted from fingerstick this morning. Surface the patient is resting on: Isoflex SKIN PREVENTION RECOMMENDATION: 1. Pressure redistribution support surface as appropriate 2. Elevate heels 3. Remove boots/TEDS every shift and reapply 4. Head of bed 30 degrees as tolerated 5. Assess nutrition and hydration 6. Manage moisture 7. Avoid the use of containment devices while in bed 8. Use absorptive products on surfaces limit layers of linens on bed 9. Turn and reposition every 1-2 hours in bed and every 1 hour in chair as tolerated 10. Weight shifts every 15 minutes while up in chair 11. Offloading with pillows or device to keep heels elevated off bed 12. Monitor skin at least every shift 13. Inspect under medical devices twice a day WOUND TREATMENT RECOMMENDATIONS: Partial thickness guidelines: Cleanse right knee with nss and apply sureprep around the wound therahoney to wound bed and cover with bandaid daily and prn for soiling. Partial thickness guidelines: Cleanse left shoulder, middle back proximal, middle back distal, left rib area with nss and apply sureprep around the wound therahoney to wound bed and cover with optifoam gentle daily and prn for soiling. Stage 2 guidelines: Cleanse left buttocks medial and left buttocks lateral with nss and apply sureprep around the wound thereahoney to wound bed and cover with optifoam gentle daily and prn for soiling. Unstageable guidelines: Cleanse left heel and left lateral foot with nss and apply sureprep around the wound therahoney to wound bed and cover with abd pad and lightly wrap with kerlix daily and prn for soiling. Consult podiatry for areas to bilateral lower extremities for possible debridement if studies allow. Venous and arterial to bilateral lower extremities due to non-healing wound. Imaging stuides to left heel to non-healing wound. dressing change: Apply sureprep to right heel and cover with optifoam gentle daily for protection. Heel raiser pro boots to bilateral feet while in bed. Wheelchair cushion when oob. Patient is currently getting hydrocortisone to affected areas due to itching.
--- NOTE | 2018-12-13 08:46 | NUR ---
PHYSICAL THERAPY Housekeeping cleaning Patient's room. Will attempt at a later time. thank you Chika Lugo, PT, DPT
--- NOTE | 2018-12-13 09:00 | NUR ---
Recruitment Consultant in to see patient. He is a LTC resident at [facility] and plans to return there upon discharge. He states he is able to get up and around in his room and back and forth to the bathroom. He states when he goes out of his room he uses a wheelchair. No O2 but does do breathing treatment. When medically stable he will be discharged to [facility]. squadron worker following.
--- NOTE | 2018-12-13 09:44 | NUR ---
Dr. Edwards notified of wound care recommendations.
--- NOTE | 2018-12-13 11:04 | NUR ---
PHYSICAL THERAPY Pt receiving an EKG. Will attempt later. Thanks Chika Lugo, PT, DPT
--- NOTE | 2018-12-13 11:05 | NUR ---
Patient not available as he is having an EKG. Rupal Nugent OTR/L
--- NOTE | 2018-12-13 11:33 | NUR ---
ATTEMPTED TO CALL DR. MICHAELS FOR CONSULT. RESPONSE OF NOTIFICATION WAS MESSAGE WAS LEFT THAT HE HAD ANOTHER NEW CONSULT AND TO CALL FOR DETAILS OR I WOULD NOTIFY HIM WHEN HE ARRIVED TO OUR HOSPITAL. AWAITING CALL BACK.. NEGRO NICKERSON
[2018-12-13] MEDS ORDERED: CLONIDINE HCL0.3 MG PO (12:27)
--- NOTE | 2018-12-13 12:32 | NUR ---
Dr. eDcker notified of details of consult with new orders received.
--- NOTE | 2018-12-13 15:30 | NUR ---
Blood product FFP delivered by patient attendant from lab. Scanned through all items, when we came to last item expiration date and time it states does not match. I spoke with Alisha in blood bank regarding this, she states we would have to speak with nursing water supervisor. Stated bar code on FFP may say 2020 for expiration date but it is only good for 6 hours after thawing so dates will not match. Helen from OR here to get pt to take for preop for EGD, states she will take FFP and pt to OR and will take care of it in surgery. States she will notify water supervisor and Leticia in IT dept. Pt left floor via bed for OR.
--- NOTE | 2018-12-13 15:36 | NUR ---
Resident Dr. Matson notified of consult for Dr. Casper.
--- NOTE | 2018-12-13 15:39 | NUR ---
Dr. De La Paz notified of post void bladder scan, result of < 10 cc noted. Ordered continuous fluids for pt. See order.
--- NOTE | 2018-12-13 17:11 | NUR ---
Report given to Veronica in ICCU. Pt to go to ICCU after surgery.
--- NOTE | 2018-12-13 18:40 | NUR ---
171 pT. RECIEVED S/P EGD from surgical dept. Awake and alert on arrival. 1814 Second IV started for protonix infusion. Sandostatin infusing.
[2018-12-13 18:59] LABS: HEMATOCRIT 26.2 % (42.0-52.0); HEMOGLOBIN 8.2 g/dl (14.0-18.0)
--- NOTE | 2018-12-13 19:00 | NUR ---
DR FLOR HERE AND DRESSES LT FOOT/HEEL.
--- NOTE | 2018-12-13 20:04 | NUR ---
DR DHALIWAL HERE. INFORMED HIM OF HH OF 8.2 + 26.2 FROM [address] FLOR WAS IN, DRESSED LT FOOT/HEEL, ORDERED IMAGES AND ULTRASOUNDS, AND ALSO ORDERED A WOUND CULTURE AFTER WOUND DRESSED.
--- NOTE | 2018-12-13 20:20 | NUR ---
PT VOIDS IN URINAL WITH ASSIST.
[2018-12-14] VITALS (10 sets, daily range): BP systolic 117–170; BP diastolic 37–66
--- NOTE | 2018-12-14 03:55 | NUR ---
PT FED SNACKS OF ICE CREAM AND PUDDING PER PT REQUEST.
--- NOTE | 2018-12-14 05:39 | NUR ---
COMPLETE GOWN AND BED LINEN CHANGE DONE BY PA PT HAD BEEN INCONTINENT OF BOTH URINE AND SMALL AMT OF STICKY, TARRY STOOL.
[2018-12-14 06:05] LABS: CREATININE 3.23 mg/dL (0.70-1.30); POTASSIUM 4.9 mmol/L (3.5-5.1)
[2018-12-14 06:08] LABS: BASO # 0.1 10*3/uL (0.0-0.1); BASO % 0.5 % (0.0-1.0); EOS # 1.2 10*3/uL (0.0-0.4); EOS % 12.3 % (1.0-4.0); HEMATOCRIT 23.7 % (42.0-52.0); HEMOGLOBIN 7.2 g/dl (14.0-18.0); LYMPH # 1.9 10*3/uL (1.3-4.4); LYMPH % 20.2 % (27.0-41.0); MEAN CORPUSCULAR HGB 28.6 pg (27.0-31.0); MEAN CORPUSCULAR HGB CONC 30.4 g/dl (33.0-37.0); MEAN PLATELET VOLUME 10.9 fl (9.6-12.3); MONO # 0.7 10*3/uL (0.1-1.0); MONO % 7.8 % (3.0-9.0); NEUT # 5.5 10*3/uL (2.3-7.9); NEUT % 57.8 % (47.0-73.0); NUCLEATED RED BLOOD CELL 0.2 % (0.0-0.0); PLATELET COUNT AUTOMATED 177 10*3/uL (130-400); RED BLOOD COUNT 2.52 10*6/uL (4.50-5.90); WHITE BLOOD COUNT 9.5 10*3/uL (4.8-10.8)
[2018-12-14 06:52] LABS: INTERNATIONAL NORM RATIO 1.6 (2.0-3.5)
[2018-12-14 13:06] LABS: HEMATOCRIT 23.7 % (42.0-52.0); HEMOGLOBIN 7.4 g/dl (14.0-18.0)
[2018-12-15] VITALS: BP 134/48
[2018-12-15 04:00] VITALS: BP 148/44
[2018-12-15 04:43] LABS: BACTERIA 1+; CALCIUM OXALATE CRYSTALS 1+; EPITHELIAL CELLS 0-2; HYALINE CAST 0-2; WBC 16-20 wbc/hpf (0-5)
[2018-12-15 05:30] LABS: BASO # 0.1 10*3/uL (0.0-0.1); BASO % 0.5 % (0.0-1.0); EOS # 1.8 10*3/uL (0.0-0.4); EOS % 16.1 % (1.0-4.0); HEMATOCRIT 25.6 % (42.0-52.0); LYMPH # 1.9 10*3/uL (1.3-4.4); LYMPH % 16.7 % (27.0-41.0); MEAN CELL VOLUME 95.2 fl (80.0-94.0); MEAN CORPUSCULAR HGB 29.7 pg (27.0-31.0); MEAN CORPUSCULAR HGB CONC 31.3 g/dl (33.0-37.0); MEAN PLATELET VOLUME 10.3 fl (9.6-12.3); MONO # 0.9 10*3/uL (0.1-1.0); MONO % 7.6 % (3.0-9.0); NEUT # 6.4 10*3/uL (2.3-7.9); NEUT % 57.8 % (47.0-73.0); NUCLEATED RED BLOOD CELL 0.3 % (0.0-0.0); PLATELET COUNT AUTOMATED 159 10*3/uL (130-400); RED BLOOD COUNT 2.69 10*6/uL (4.50-5.90); WHITE BLOOD COUNT 11.2 10*3/uL (4.8-10.8)
[2018-12-15 05:46] LABS: INTERNATIONAL NORM RATIO 1.1 (2.0-3.5)
[2018-12-15 05:56] LABS: CREATININE 3.12 mg/dL (0.70-1.30); POTASSIUM 4.7 mmol/L (3.5-5.1)
[2018-12-15 08:00] VITALS: BP 182/69
--- NOTE | 2018-12-15 09:28 | NUR ---
Listless, Awakened for VS. Repositioned in bed. Declined breakfast. Dr. Ervin aware [facility]
--- NOTE | 2018-12-15 10:47 | NUR ---
Dr. De La Paz called in. Update was given . and orders were recieved.
[2018-12-15 12:00] VITALS: BP 156/54
--- NOTE | 2018-12-15 12:04 | NUR ---
Large abcess noted to rt. back . pt. expresses pain w/ palpation. Dr. Ervin was notified and in to see pt. Repositioned to left. Assisted w/ urinal use. Pt. c/o painful urination bladder scan revealed 235 cc urine pre void and 35 cc post void residual.
--- NOTE | 2018-12-15 12:06 | NUR ---
Message was left on Dr. Decker ans machine as to need for discussion on diet upgrade and medication discontinuance.
--- NOTE | 2018-12-15 12:25 | NUR ---
Dr. Thomas was notified of consult, states will i/d abcess at the bedside on sunday.
--- NOTE | 2018-12-15 14:32 | NUR ---
Inc small amt urine. rey care given , Complete linen change and repositioned. Pt. states his back hurts so bad w/i 15 mins repositioned to back . Pain med offered declined. Tylenol offered and again declined. Sister in to visit. IV ABX up to infuse.
[2018-12-15 16:00] VITALS: BP 145/46
--- NOTE | 2018-12-15 16:47 | NUR ---
Infectious disease consulted and in to evaulate. Dressing removed from left heel for inspection, re-dressed. Dr. Decker was called and orders were recieved.
[2018-12-15 20:00] VITALS: BP 145/48
--- NOTE | 2018-12-15 20:41 | NUR ---
PT. RESTING IN BED. SANDOSTATIN DRIP CONTINUES UNTIL EMPTY PER ORDERS VIA KENDALL. HEP LOCK IN LA AND RW ASYMPT. LUNGS HAVE EXP. WHEEZES BILAT, PULSE OX 100% ON RA. ABDOMEN SOFTLY DISTENDED AND NORMO. 2+BLE EDEMA NOTED. HEEL DRESSING TO LEFT FOOT D/I. HEEL BOOTS ON ORDERED. NATTY CHANDRA RN
[2018-12-16] VITALS: BP 140/39
[2018-12-16 04:00] VITALS: BP 117/82; BP 125/30
[2018-12-16 04:46] LABS: HEMATOCRIT 25.2 % (42.0-52.0); HEMOGLOBIN 7.9 g/dl (14.0-18.0); MEAN CELL VOLUME 95.5 fl (80.0-94.0); MEAN CORPUSCULAR HGB 29.9 pg (27.0-31.0); MEAN CORPUSCULAR HGB CONC 31.3 g/dl (33.0-37.0); NUCLEATED RED BLOOD CELL 0.2 % (0.0-0.0); PLATELET COUNT AUTOMATED 174 10*3/uL (130-400); RED BLOOD COUNT 2.64 10*6/uL (4.50-5.90); RED CELL DISTRI WIDTH 17.2 % (0-14.5); WHITE BLOOD COUNT 11.8 10*3/uL (4.8-10.8)
[2018-12-16 04:57] LABS: INTERNATIONAL NORM RATIO 1.1 (2.0-3.5)
[2018-12-16 04:58] LABS: CREATININE 3.09 mg/dL (0.70-1.30); POTASSIUM 4.6 mmol/L (3.5-5.1)
[2018-12-16 05:10] LABS: PLATELET SUFFICIENCY NORMAL (NORMAL); TOTAL CELLS COUNTED 100 #CELLS
[2018-12-16 05:11] LABS: MICROCYTOSIS SLIGHT
[2018-12-16 08:00] VITALS: BP 164/53
--- NOTE | 2018-12-16 08:02 | NUR ---
Updated clinicals faxed to [facility] for review. 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
--- NOTE | 2018-12-16 08:31 | NUR ---
Awake and alert. Urinal w/ assist. Dr. Decker called in early this AM, UPDATE WAS GIVEN AND PT. IS TO REMAIN ON COLD LIQUID DIET. [facility]
--- NOTE | 2018-12-16 10:08 | NUR ---
On repositioning . abcess to rt. back seeping large amts , purlent drainage. 4x4 dressing applied. All wounds were addressed and dressing changes complete. Cortisone cream to full body rash.
--- NOTE | 2018-12-16 10:30 | NUR ---
Closing Agent in to see patient. He is a LTC resident at [facility] and plans to return there upon discharge. product planner following.
--- NOTE | 2018-12-16 10:37 | NUR ---
PHYSICAL THERAPY Patient was transferred to ICU 1 from [facility]. Awaiting new order for PT evaluation. Pt is on a vent. Will evaluate when medically appropriate and new order received. Thank you Chika Lugo, PT, DPT
--- NOTE | 2018-12-16 11:24 | NUR ---
Dr. Mliler notified of wound care recommendations.
[2018-12-16 12:00] VITALS: BP 143/37
--- NOTE | 2018-12-16 13:08 | NUR ---
MEDICATED WITH VISTARIL BY MOUTH FOR "ITCHING".
--- NOTE | 2018-12-16 13:21 | NUR ---
1225 dR. Aranda IN AND i/d OF PAIGE TO RT. BACK WAS COMPLETE at bedside. Pt. tolerated procedure well. specimen obtained and sent to lab, dressing applied to site. Son in to visit.
--- NOTE | 2018-12-16 13:43 | NUR ---
PHYSICAL THERAPY Awaiting new PT order due to Pt being transferred from 503-2 to ICU-1. Will perform evaluation when received and when Pt is medically appropriate. thank you Chika Lugo, PT, DPT
--- NOTE | 2018-12-16 14:06 | NUR ---
[facility]
--- NOTE | 2018-12-16 14:30 | NUR ---
PHYSICAL THERAPY Physical therapy evaluation completed, ICU-1. Full details to follow. Moderate complexity determined after evaluation/chart review, 66888. No weight bearing orders present in Patient chart; however Per nursing Pt is NWB on L LE. Upon speaking to patient during evaluation, Patient reports R LE is also NWB. Physical therapy will be placed on a temporary hold until after further clarification from the doctor on B LE weight bearing status. Recommending returning to LTC for therapy at discharge. Chika Lugo PT, DPT
--- NOTE | 2018-12-16 14:30 | NUR ---
Occupational therapy orders received and OT evaluation completed in full in the ICCU. Patient precautions include fall risk, L ZULEYMA NWB per nursing, IV lines, heart monitor, and contact precautions. Per patient, he is NWB B/L LE's, will seek further clarification from physician. Per OT naomi, OT recommends SNF. Patient complexity is moderate, 13043. Chitra Barr, OTR/L
[2018-12-16 16:00] VITALS: BP 126/50
--- NOTE | 2018-12-16 16:23 | NUR ---
Dressing changed to rt. back i/d site. repositioned and complete linen change. Pt/ot in evaulation complete.
[2018-12-16 20:00] VITALS: BP 133/72
--- NOTE | 2018-12-16 20:17 | NUR ---
PT. RESTING IN BED. HEP LOCK IN LA AND KENDALL ASYMPT .LUNGS CLEAR BILAT, PULSE OX 94% ON RA. ABDOMEN SOFTLY DISTENDED AND NORMO. 1-2+BLE EDEMA NOTED. DRESSINGS TO MULTIPLE AREAS INTACT. HEEL PROTECTORS ON BLAT, DRESSING TO LEFT FOOT D/I. NATTY CHANDRA RN
--- NOTE | 2018-12-16 21:45 | NUR ---
PT. REFUSING BED BATH AT THIS TIME. STATES HE DOES NOT FEEL WELL.
--- NOTE | 2018-12-16 23:00 | NUR ---
PT HAD ONE LARGE ENSURE EMESIS OF APPROX 300CC'S. ZOFRAN GIVEN ORDERED. BED BATH AND BED LINENS CHANGED.
--- NOTE | 2018-12-16 23:41 | NUR ---
PT. STATES ZOFRAN EFFECTIVE FOR NAUSEA.
[2018-12-17] VITALS: BP 139/40
[2018-12-17 04:00] VITALS: BP 125/36
[2018-12-17 04:27] LABS: BASO # 0.1 10*3/uL (0.0-0.1); BASO % 0.5 % (0.0-1.0); EOS # 1.9 10*3/uL (0.0-0.4); EOS % 16.9 % (1.0-4.0); HEMATOCRIT 25.1 % (42.0-52.0); HEMOGLOBIN 7.8 g/dl (14.0-18.0); LYMPH # 1.7 10*3/uL (1.3-4.4); LYMPH % 15.7 % (27.0-41.0); MEAN CELL VOLUME 96.5 fl (80.0-94.0); MEAN CORPUSCULAR HGB CONC 31.1 g/dl (33.0-37.0); MEAN PLATELET VOLUME 10.5 fl (9.6-12.3); MONO # 0.8 10*3/uL (0.1-1.0); NEUT # 6.5 10*3/uL (2.3-7.9); NEUT % 58.1 % (47.0-73.0); NUCLEATED RED BLOOD CELL 0.2 % (0.0-0.0); PLATELET COUNT AUTOMATED 198 10*3/uL (130-400); RED CELL DISTRI WIDTH 17.3 % (0-14.5); WHITE BLOOD COUNT 11.1 10*3/uL (4.8-10.8)
[2018-12-17 04:48] LABS: ALBUMIN 1.9 gm/dl (3.1-4.5); CREATININE 3.18 mg/dL (0.70-1.30); PHOSPHOROUS 3.4 mg/dL (2.5-4.9); POTASSIUM 4.4 mmol/L (3.5-5.1); TOTAL PROTEIN 5.7 gm/dL (6.4-8.2)
--- NOTE | 2018-12-17 04:48 | NUR ---
ZOFRAN GIVEN FOR COMPLAINTS OF NAUSEA.
--- NOTE | 2018-12-17 05:37 | NUR ---
PT. STATES ZOFRAN WAS EFFECTIVE.
--- NOTE | 2018-12-17 05:56 | NUR ---
Upon discharge recommend patient to follow up for wound care in outpatient setting continue current wound care orders at discharging facility.
[2018-12-17 08:00] VITALS: BP 153/55
--- NOTE | 2018-12-17 08:30 | NUR ---
DR WREN IN TO SEE PT. NEW ORDERS RECEIVED.
--- NOTE | 2018-12-17 08:42 | NUR ---
PT C/O INTERMITTANT NAUSEA. PT STATES "IT WAS THAT CHOCOLATE ICE CREAM LAST NIGHT...I'M TELLING YOU." NOT TIME YET FOR DARIAN.
--- NOTE | 2018-12-17 10:26 | NUR ---
PHYSICAL THERAPY Patient was approached for therapy this morning and this TOPPER PRESS OPERATOR talked to JOSUÉ AGGARWAL and she said that the wt. bearing status is still NOT known at this time. JOSUÉ AGGARWAL said she will call the coverstitch elastic attacher and get a wt bearing STATUS SOON POSSIBLE. Will check back later this morning. NIKKI PIERCE TOPPER PRESS OPERATOR
--- NOTE | 2018-12-17 10:30 | NUR ---
Chief Nuclear Medicine Technologist in to see patient. He is a LTC resident at [facility] and plans to return there upon discharge. digital media planner following. Per multidisciplinary discharge planning meeting patient should be moving out of the unit today. He had an I&D done yesterday for a back abscess.
--- NOTE | 2018-12-17 10:46 | NUR ---
PT HAD A SMALL LIQUID EMESIS OF AROUND 50CC. MEDICATED PT PER ORDER WITH ZOFRAN. PT STILL BLAMING THE ICE CREAM FROM LAST NIGHT FOR HIS NAUSEA.
--- NOTE | 2018-12-17 11:03 | NUR ---
PHYSICAL THERAPY Weight bearing orders received per Dr. Loenel Matson. "NWB to L Heel." Per ICU nurse, Pt is "WBAT ON THE RIGHT LE. Physical therapy goals to be updated and will continue with POC. Thank you Chika Lugo, PT, DPT
--- NOTE | 2018-12-17 11:28 | NUR ---
PT STILL C/O SOME GI UPSET. PT WANTING TO HOLD OFF ON FOOD AND PO MEDS AT THIS TIME.
[2018-12-17 12:00] VITALS: BP 158/62
--- NOTE | 2018-12-17 13:00 | NUR ---
DR RIDDLE IN TO SEE PT. DRESSING TO UPPER BACK CHANGED.
--- NOTE | 2018-12-17 13:40 | NUR ---
DR KELLEY IN TO SEE PT. NEW ORDERS RECEIVED.
--- NOTE | 2018-12-17 13:47 | NUR ---
PHYSICAL THERAPY Patient pressented to therapy in supine with head of bed elevated attached to heart monitor. Patient is on IV infusing at this time. Patient was identifed by name and . Patient gives infomed consent for treatment. Patient was instructed with avoiding wt bearing on the L LE. JOSUÉ AGGARWAL CONFIRMED THAT MR. HUGHES IS WBAT ON THE R LE, PER HIS TRUCK TERMINAL MANAGER. Patient performed supine to sitting at EOB with SBA. Patient sat on EOB with SBA. Patient was instruccted again , with witness present , LAURA LINDA. Patient was instructed visually and verbally with proper technique with Wh Walker in maintaining NWB on the L LE. Patient performed sit to stand from EOB with MIN A X 1 with verbal cues for pushing off the bed with his hands and maintaining NWB on the L LE. Patient started ambulating, against advice of this POWER PLANT ENGINEER, upon his standing to Wh Walker. Patient took about 4 steps before he complied with backing up to bed to sit. PATIENT DID NOT MAINTAIN NWB STATUS on the L LE. Patient stood again from EOB with CGA X 1. Patient stood for 1 minute total and DID maintain L LE NWB STATUS this time, the entire minute. Patient stood the entire minute with SBA. Patient side-scooted up to head of bed himself with SBA and verbal cues for maintaining the NWB on the L LE. Patient transferred back to supine in bed with SBA. Patient was left in supine in bed with head of bed elevated and call light within reach. Bed alarm was activated. Patient was 1:1 with this POWER PLANT ENGINEER for 25 minutes total. NIKKI PIERCE POWER PLANT ENGINEER
--- NOTE | 2018-12-17 15:30 | NUR ---
RESTING IN BED. DENIES ANY COMPLAINTS. BP 165/60. PULSE OX 100% ON ROOM AIR. LUNGS CLEAR BILATERALLY. 1+ EDEMA NOTED TO BILATERAL LOWER LEGS. AFEBRILE. COMPLAINS OF NAUSEA. MEDICATED WITH ZOFRAN ORDERED.
[2018-12-17 16:00] VITALS: BP 165/60
--- NOTE | 2018-12-17 18:52 | NUR ---
Shift chart check completed.24 HR chart check completed.
--- NOTE | 2018-12-17 19:44 | NUR ---
ON ASSESSMENT PT IS DROWSY BUT AROUSES EASILY TO HIS NAME. HE DENIES PAIN OR SHORTNESS OF BREATH. WHEN ASKED IF HE'S NAUSEATED HE SAYS "I'M OKAY RIGHT NOW". IV FLUIDS CONTINUE PER ORDER OF TODAY. GENERALIZED EDEMA CONTINUES. BILATERAL HEEL PROTECTOR BOOTS IN PLACE. THERE'S A DRESSING TO THE LEFT FOOT. MULTIPLE OPTIFOAM DRESSINGS ARE INTACT. HE GIVES NO VOICED C/O ITCHING AT THIS TIME. FRESH WATER PLACED IN HIS REACH. HIS BED IS IN LOW POSITION WITH WHEELS LOCKED AND BED EXIT ALARM ACTIVATED. SEE ALL APPROPRIATE INTERVENTIONS.
[2018-12-17 20:00] VITALS: BP 148/51
--- NOTE | 2018-12-17 23:32 | NUR ---
ZOFRAN NOT GIVEN FOR 0000 DOSE PT DENIES NAUSEA. HIS 2200 DOSE OF COREG NOT GIVEN DUE TO BRADYCARDIA, UPPER 40'S.
[2018-12-18] VITALS: BP 145/51
--- NOTE | 2018-12-18 01:37 | NUR ---
INCONTINENT OF MUSHY STOUT STOOL. COMPLETE BED BATH/BED CHANGE DONE. PT TOLERATED WELL. DR DORAN WAS IN EARLIER AND MADE AWARE OF PT'S BRADYCARDIA TONIGHT AND THAT I HAD NOT GIVEN ZOFRAN THAT HAD BEEN ORDERED Q4H STRAIGHT. ZOFRAN ORDER CHANGED TO PRN. PATIENT IS DRINKING WATER EASILY. PT POSITIONED FOR COMFORT.
[2018-12-18 02:24] VITALS: BP 132/49
[2018-12-18 02:55] VITALS: BP 139/46
--- NOTE | 2018-12-18 02:59 | NUR ---
MONITOR WAS FREQUENTLY ALARMING HR LOW 40'S. P WAVE MORPHOLOGY CHANGING. DR DORAN WAS NOTIFIED. EKG DONE. PT AROUSES EASILY TO HIS NAME, IS UPSET WITH BEING AWAKENED. BP 130'S SYSTOLIC. DR DORAN CAME TO UNIT. STRIPS REVIEWED.
--- NOTE | 2018-12-18 07:23 | NUR ---
Updated clinicals and therapy faxed to [facility] for review. patient is [facility] care and ok to return when medically stable for discharge.
[2018-12-18 07:43] LABS: HEMATOCRIT 25.4 % (42.0-52.0); HEMOGLOBIN 7.7 g/dl (14.0-18.0); MEAN CELL VOLUME 98.1 fl (80.0-94.0); MEAN CORPUSCULAR HGB 29.7 pg (27.0-31.0); MEAN CORPUSCULAR HGB CONC 30.3 g/dl (33.0-37.0); NUCLEATED RED BLOOD CELL 0.2 % (0.0-0.0); PLATELET COUNT AUTOMATED 196 10*3/uL (130-400); RED BLOOD COUNT 2.59 10*6/uL (4.50-5.90); RED CELL DISTRI WIDTH 17.6 % (0-14.5); WHITE BLOOD COUNT 10.8 10*3/uL (4.8-10.8)
[2018-12-18 07:55] LABS: CREATININE 3.26 mg/dL (0.70-1.30); POTASSIUM 4.1 mmol/L (3.5-5.1)
[2018-12-18 08:04] LABS: PLATELET SUFFICIENCY NORMAL (NORMAL); POLYCHROMASIA SLIGHT; ROULEAUX MODERATE; TOTAL CELLS COUNTED 100 #CELLS
--- NOTE | 2018-12-18 08:20 | NUR ---
PHYSICAL THERAPY Patient to be seen by attending physician secondary to heart rate in the 40's. Will continue per POC as able following physician update. Chuy Wilkes, SMART GRID ENGINEER
--- NOTE | 2018-12-18 08:24 | NUR ---
Patient not appropriate at this time for OT treatment secondary to a low heart rate per nursing. Cardiology with patient at this time. Will follow up with patient when appropriate. Thank you. Chitra Barr, OTR/L
[2018-12-18 12:00] VITALS: BP 179/51
--- NOTE | 2018-12-18 12:36 | NUR ---
DR ALFREDO AND DR WREN IN TO SEE PT EARLIER. NEW ORDERS RECEIVED.
[2018-12-18 13:59] LABS: COARSE GRANULAR CAST 0-3
[2018-12-18 14:00] LABS: BACTERIA TRACE
--- NOTE | 2018-12-18 14:09 | NUR ---
Nutritional Support Services Note: Pt diet has been advanced to soft. Tolerating diet at this time. Appetite is good, eating 100%. Will follow if needed. Recommend Ensure po TID with meals. Aviva Álvarez Rdn Ld
--- NOTE | 2018-12-18 14:25 | NUR ---
DR ALFREDO UPDATED ON PT'S TACHYCARDIA. NEW ORDERS RECEIVED.
--- NOTE | 2018-12-18 14:40 | NUR ---
PHYSICAL THERAPY Patient seen this pm 1:1 for therapy visit and was supine in bed upon therapist arrival. Patient identified by name / and presented with multiple IV treatments, voicing no c/o's pain. Patient educated on NWB R LE prior to transfering supine to sit EOB with MIN A. Patient performed several sit to stand transfers with use of wh walker support, MOD A on first attempt, demonstrating 50% compliance with NWB status R LE and MIN A second trial, demonstrating 100% compliance with NWB status. Patient fatigues quickly, tolerating 45-60 seconds static stand and prior to initial transfer, therapist observed minor skin tear to distal / lateral [place] area. ICCU nurse was notified and patient was without c/o returning to supine in bed, CGA. Patient remained in bed with call light, tray table and telephone. Will continue per POC as tolerated, total treatment time 14 minutes. Chuy Wilkes, MEDICAL CARE EVALUATION SPECIALIST
--- NOTE | 2018-12-18 15:01 | NUR ---
OT TREATMENT AND UPDATED GOALS- Per progress note from livestock trucker, patient is R LE WBAT and L LE NWB. Patient goals were updated this date secondary to change in weight bearing status. Goals as followed- Dressing: Independent upper body and supervision lower body dressing Grooming: Independent grooming in stance Toileting: Supervision hygiene and clothing management Functional mobility/transfers: Supervision with ww and 100% compliance with NWB L LE Sitting/Standing balance: Good dynamic balance in stance Will tolerate 8 minutes of activity in stance with no more than 1 seated RB Strength: 5/5 B/L UE's Safety: 100% safety with ww use and L LE NWB during ADLs and mobility/transfers Goals to be met by 01/01/19. TREATMENT NOTE Patient was seen this date for an occupational therapy treatment. Patient was supine in bed upon arrival and was agreeable to OT treatment. Patient had B/L UE IV lines, nathaly boots which were doffed at start and donned at conclusion. Patient was re-educated on L LE NWB and R LE WBAT precautions and patient verbalized a good understanding. Patient completed supine/sit with Min A to EOB. When seated EOB, patient educated on relaxation breathing with fair plus carryover. Patient don/doffed socks with Mod A. After donning right sock, OT and ELECTRON TUBE ASSEMBLER observed a small skin tear on the distal lateral aspect of his right calf. Nursing was notified after treatment of skin tear. Patient completed a functional sit/stand from EOB with 50% compliance with weight bearing status with Mod Ax2. Patient seated for a rest break participated in grooming task. Patient completed a second functional sit/stand from EOB with Mod Ax2 with 100% weight bearing compliance. While in stance, patient completed dynamic standing activity to challenge balance. Patient returned to bed for completion of OT treatment. [place] boots were donned. Patient is progressing, continue with POC. Chitra Barr, IAN/L
[2018-12-18 16:00] VITALS: BP 160/69
--- NOTE | 2018-12-18 16:04 | NUR ---
DRESSINGS CHANGED PER ORDERS. DR JACINTO AND WIND TURBINE SERVICE TECHNICIAN IN TO SEE PT.
--- NOTE | 2018-12-18 17:18 | NUR ---
MEDICATED PT PER PRN ORDER WIT HVISTARIL FOR C/O ITCHING.
[2018-12-18 20:00] VITALS: BP 136/55
--- NOTE | 2018-12-18 20:17 | NUR ---
PATIENT LYING IN BED, REFUSED TO BE TURNED, ALSO REFUSED A BATH, STATED HE JUST WANTS TO REST, IT HAS BEEN A LONG DAY. PATIENT COMPLAINS OF BEING COLD, BUT NOTHING ELSE. DENIES NAUSEA. PATIENT GIVEN WARM BLANKETS, THE USE OF URINAL AND CALL LIGHT IN REACH.
--- NOTE | 2018-12-18 21:40 | NUR ---
PATIENT REQUESTED VISTARIL FOR HIS ITCHING, WAS GIVEN. WILL MONITOR AND REASSESS.
[2018-12-19] VITALS: BP 153/47
--- NOTE | 2018-12-19 02:38 | NUR ---
PATIENT AWOKE TO USE THE URINAL, WHEN ASKED ABOUT THE VISTARIL, PATIENT STATED IT DOESNT HELP VERY WELL.
[2018-12-19 04:03] VITALS: BP 162/54
[2018-12-19 06:10] LABS: HEMATOCRIT 26.5 % (42.0-52.0); HEMOGLOBIN 8.2 g/dl (14.0-18.0); MEAN CELL VOLUME 97.4 fl (80.0-94.0); MEAN CORPUSCULAR HGB 30.1 pg (27.0-31.0); MEAN CORPUSCULAR HGB CONC 30.9 g/dl (33.0-37.0); MEAN PLATELET VOLUME 10.8 fl (9.6-12.3); PLATELET COUNT AUTOMATED 247 10*3/uL (130-400); RED BLOOD COUNT 2.72 10*6/uL (4.50-5.90); RED CELL DISTRI WIDTH 17.9 % (0-14.5)
[2018-12-19 06:26] LABS: CREATININE 3.38 mg/dL (0.70-1.30); POTASSIUM 3.8 mmol/L (3.5-5.1)
[2018-12-19 07:07] LABS: TOTAL CELLS COUNTED 100 #CELLS
[2018-12-19 07:09] LABS: BURR CELLS FEW; PLATELET SUFFICIENCY NORMAL (NORMAL); POLYCHROMASIA SLIGHT
[2018-12-19 08:00] VITALS: BP 156/68
--- NOTE | 2018-12-19 09:50 | NUR ---
OT NOTE Pt was seen this A.M. 1:1 for 30 minute OT session. Upon arrival pt was supine in bed. Pt identified by name and and had no complaints at this time. Pt transferred supine to sit EOB with SBA and use of bed rail for UE support. While sitting EOB pt donned R sock with SBA. Sit to stand completed from the bed level with Cielo X 2 and use of w/w for UE support. Challenged pt's static standing tolerance needed for increased I in self care tasks and functional transfers. Pt was able to tolerate aprox 60 seconds at a time before sitting due to fatigue. Pt required constant verbal prompts for following NWB to LLE due to pt being non compliant. Pt completed standing pivot from the EOB to the recliner with Cielo x 2 and use of w/w again with pt being non compliant with NWB status. Pt then transferred back into bed sit to supine with SBA. There he was left with call light in hand, tray table in place, and bed alarm activated for safety. Continue with rec D/C plan to SNF. LAURA Preston/Jennifer
--- NOTE | 2018-12-19 10:30 | NUR ---
Bounty Hunter in to see patient. 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 senior buyer planner following. Per multidisciplinary discharge planning meeting patient could possibly be discharged today but have to clear discharge with all consults. senior buyer planner following.
--- NOTE | 2018-12-19 10:33 | NUR ---
PHYSICAL THERAPY Patient presented to therapy in supine with head of bed elevated and bed alarm activated. Patient reports no pain at this time. Patient was identifed by name and on wristband. Patient gives informed consent for treatment. Patient was instructed by this MATH AND PHYSICS INSTRUCTOR in proper ambulation and standing with Walker and proper technique for maintaining NWB STATUS ON L LE. Patient transferred supine to sitting at EOB with SBA. Patient sat on EOB with SBA. Patient sit to stand transfer from EOB to Walker with MIN A X 2 and verbal cues for pushing off the armrests of chair with hands and for maintaining proper technique with L LE NWB STATUS. Patient stood at [facility] with CGA X 2 and verbal cues for keeping L LE non-wt bearing status. Patient PERFORMED STANDING TOLERANCE MAINTAINING NWB L LE for 1 minute X 2 with CGA X [address] [facility]. Patient ambulated 6' x 1 with CGA X 2 and Walker to low chair across room with verbal cues for maintaining NWB on L LE. However, patient was NOT compliant with NWB instructions while ambulating the 6' x 1. Patient transferred to bedside chair with verbal cues for putting hands back on armrests of rudy and kicking L LE out in fron of him. Again, patient was NOT compliant with instructions and "flopped" into chair unsafely. Patient performed sit to stand out of bedside chair with MIN A X 2. Patient stand pivot transfer to EOB with CGA X 1. Patient transferred to supine in bed with SBA. Patient left in supine in bed with head of bed elevated, call light within reach and bed alarm activated. Patient demonstrated weakness in the bilateral LEs and UEs ,as well as NON-COMPLIANCE with L LE NWB STATUS. Patient was 1:1 with this MATH AND PHYSICS INSTRUCTOR for 26 minutes total. NIKKI PIERCE MATH AND PHYSICS INSTRUCTOR
[2018-12-19 12:00] VITALS: BP 168/50
--- NOTE | 2018-12-19 14:02 | NUR ---
OT NOTE Pt was seen this P.M. 1:1 for second OT session consisting of 27 minutes. Upon arrival pt was supine in bed. Pt identified by name and and had no complaints at this time. Pt transferred supine to sit EOB with SBA. Pt completed mutliple sit to stand transfers from bed level with Cielo and use of w/w with 50% carry over of NWB to LLE. Challenged pt's static standing tolerance needed for increased I and improved enduranced, pt was able to tolerate aprox 1-2 minutes at a time before sitting due to fatiuge. Pt then completed BUE towel exercises over all planes of motion for 1 x 10 to increase UE strength needed for increased I in functional transfers. Pt then transferred back into bed sit to supine with SBA. There he was left with call light in hand, tray table in place, and bed alarm activated for safety. Continue with rec D/C plan to SNF. DAVIS Preston
--- NOTE | 2018-12-19 14:43 | NUR ---
PHYSICAL THERAPY Patient presented to therapy in supine this afternoon for 2nd treatment of the day. Patient was identified by name and on wristband. Patient gives informed consent for treatment. Patient performed supine to sitting EOB transfer with SBA. Patient sat on EOB with SBA. Patient sit to stand to Walker with CGA X 2. Patient required verbal cues for hand placement and keeping the WT off of L LE. Patient stood x 2 for 2 minutes the first attempt and 1 minute the 2 nd attempt with CGA X 2. Patient performed seated bilateral LE ther ex including BILATERAL LAQs, marches, hip abduction, and heel and toe raises on the L LE ONLY. ALL ther ex done 15 repetitions each. Patient transferred back to supine in bed with SBA. Patient was moved up in bed with sheet with MAX A X 2. Patient was left in supine with head of bed elevated, call light within reach, and bed alarm activated. Patient was 1:1 with this LICENSED PRACTICAL NURSE INSTRUCTOR for 19 minutes total. NIKKI PIERCE LICENSED PRACTICAL NURSE INSTRUCTOR
[2018-12-19 16:00] VITALS: BP 160/52
--- NOTE | 2018-12-19 17:02 | NUR ---
PATIENT VOIDED 170ML CLEAR [place] URINE, THEN BLADDER SCANNED FOR 119ML. STUDENT NURSES WILL STRAIGHT CATH THE PATIENT AND NOTE OUTPUT TO ASSESS POST VOID RESIDUAL ORDERED WITH RESULT TO BE CALLED TO DR. KELLEY.
--- NOTE | 2018-12-19 19:03 | NUR ---
PER NURSING STUDENTS/INSTRUCTOR, UNABLE TO STRAIGHT CATH THE PATIENT D/T RESISTANCE, MOST LIKELY ENLARGED PROSTATE. DR. LOBO NOTIFIED OF POST VOID RESIDUAL BLADDER SCAN RESULT AND OF UNSUCCESSFUL ATTEMPT TO STRAIGHT CATHETERIZE. OBTAINED ORDER TO ATTEMPT INSERTION OF COUDE CATHETER TO MAINTAIN AN INDWELLING CATHETER.
[2018-12-19 20:00] VITALS: BP 160/83
[2018-12-20] VITALS (7 sets, daily range): BP systolic 132–180; BP diastolic 56–87
--- NOTE | 2018-12-20 04:09 | NUR ---
Patient sleeping. Respirations relaxed and easy. Siderails up . [place] on. No signs of distress noted. Call light within reach. BARRY HEATON
[2018-12-20 06:26] LABS: HEMATOCRIT 26.7 % (42.0-52.0); HEMOGLOBIN 8.5 g/dl (14.0-18.0); MEAN CORPUSCULAR HGB 30.6 pg (27.0-31.0); MEAN CORPUSCULAR HGB CONC 31.8 g/dl (33.0-37.0); NUCLEATED RED BLOOD CELL 0.2 % (0.0-0.0); PLATELET COUNT AUTOMATED 253 10*3/uL (130-400); RED BLOOD COUNT 2.78 10*6/uL (4.50-5.90); WHITE BLOOD COUNT 13.2 10*3/uL (4.8-10.8)
[2018-12-20 06:36] LABS: ALBUMIN 1.9 gm/dl (3.1-4.5); CREATININE 3.28 mg/dL (0.70-1.30); PHOSPHOROUS 2.6 mg/dL (2.5-4.9); POTASSIUM 3.4 mmol/L (3.5-5.1); TOTAL PROTEIN 5.6 gm/dL (6.4-8.2)
--- NOTE | 2018-12-20 07:30 | NUR ---
TOOK OVER CARE OF PT AT THIS TIME. PT RESTING IN BED, EYES OPEN, HOB ELEVATED, TAKING BREATHING TREATMENT. RESPIRATIONS EASY AND UNLABORED WITH NO S/S OF DISTRESS NOTED. PT DENIES NEEDING ANYTHING AT THIS TIME. SAFETY MEASURES IN PLACE, CALL LIGHT IN REACH.
[2018-12-20 07:52] LABS: PLATELET SUFFICIENCY NORMAL (NORMAL); POLYCHROMASIA SLIGHT; SCHISTOCYTES FEW; TOTAL CELLS COUNTED 100 #CELLS
--- NOTE | 2018-12-20 09:00 | NUR ---
Electrical Tester in to see patient. 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 systems requirements planner following. Per Dr. Miller patient needs a couple more days per nephrology.
--- NOTE | 2018-12-20 09:25 | NUR ---
PHYSICAL THERAPY Patient seen this am 1:1 for therapy visit and was supine in bed upon therapist arrival. Patient voices no new c/o's and presents with B heel protector boots / gauze wrap on L foot. Patient is NWB on L LE and transfers supine to sit EOB with CGA. Patient educated on safe transfer technique and completed several sit to stand transfers at bedside, MIN A, use of wh walker standing support, tolerating approx 2 minutes static stand first attempt and 1 minute second trial. Patient unable to attempt gait ex this session secondary to increased fatigue and fear of falling. Patient was 75% compliant with WB status on first attempt and 100% compliant during second attempt. Patient returned to supine in bed and remained with call light, tray table, telephone and bed alarm for safety. Will continue per POC as tolerated, total treatment time 14 minutes. Chuy Wilkes, FREIGHT CLAIM INVESTIGATOR
--- NOTE | 2018-12-20 09:30 | NUR ---
OT NOTE Pt was seen this A.M. 1:1 for 20 minute OT session. Upon arrival pt was supine in bed. Pt identified by name and and had no complaints at this time. Pt transferred supine to sit EOB with SBA. Pt completed multiple sit to stand transfers from bed level with Cielo and use of w/w for UE support. Challenged pt's static standing tolerance needed for increased I, improved NWB follow through, and increased endurance. Pt was able to tolerate aprox 2 minutes at a time before sitting due to fatigue. Pt was non-compliant with NWB status during sit to stand transfer, however once on his feet pt had good carry over of NWB. Pt then transferred back into bed sit to supine with SBA. There he was left with call light in hand, tray table in place, and bed alarm activated for safety. Continue with rec D/C plan to SNF. LAURA Preston/Jennifer
--- NOTE | 2018-12-20 09:49 | NUR ---
PT OFF OF FLOOR FOR CXR AT THIS TIME.
--- NOTE | 2018-12-20 10:30 | NUR ---
ASSISTED WOUND CARE NURSE IN ASSESSING AND DRESSING PT WOUNDS. PT TOLERATED WELL. NO C/O AT THIS TIME. WILL UPDATE WOUND SCREEN PER WOUND CARE ORDERS/NOTES PUT IN BY WOUND CARE NURSE.
--- NOTE | 2018-12-20 11:19 | NUR ---
CORNELIO HUGHES [id number] Please refer to the physician's history and physical for past medical history, comorbid conditions, and allergies. Diagnosis: ANEMIA UREMIA ACUTE ON CHRONIC KIDNEY INJURY Nura Score: 13,MODERATE RISK WOUND DESCRIPTIONS: Wound Number: 1 Location of the wound: left heel Type of wound: unstageable Thickness: Full Size: 5.5cm x 7.0cm x 0.3cm Tunneling: none Undermining: none Sinus Tract: none Presence of Exudate: Serosanguineous Amount: Light Color: Red, yellow, brown Odor: mediumm Periwound Skin Appearance: Erythema Wound edges: approximated Pain (associated with wound): tender to touch How does patient state this happened? pt stated he has had this for a while and is getting treatment at the intermediate Wound Number: 2 Right heel is pink and blanchable at time of assessment. No open areas noted to drainage noted at time of assessment. Wound Number: 3 Location of the wound: left buttocks medial Type of wound: stage 2 Thickness: Partial Size: 0.5cm x 1.0cm x 0.1cm Tunneling: none Undermining: none Sinus Tract: none Presence of Exudate: Serosanguineous Amount: Light Color: Red Odor: None Periwound Skin Appearance: erythema Wound edges: approximated Pain (associated with wound): none at time of assessment How does patient state this happened? pt stated he believes this is a bed sore from him not being able to get out of bed much at the intermediate Wound Number: 4 Location of the wound: right knee intact scab area noted. No drainage at time of assessment. No redness surrounding area at time of assessment. Wound Number: 5 Location of the wound: distal middle back Type of wound: surgical Thickness: Partial Size: 2.0cm 0.5cm x <0.1cm Tunneling: none Undermining: none Sinus Tract: none Presence of Exudate: serosanguineous Amount: Light Color: Red Odor: None Periwound Skin Appearance: normal Wound edges: approximated Pain (associated with wound): none at time of assessment How does patient state this happened? pt stated he is unsure how this started but is uncomfortable Wound Number: 6 Location of the wound: Middle back proximal no open areas at time of assessment. No drainage noted at time of assessment. Wound Number: 7 Locatin of the wound: left posterior shoulder. No open areas noted at time of assessment. No drainage noted at time of assessment. Wound Number: 8 Location of the wound: left rib area. No open areas noted at time of assessment. No drainage noted at time of assessment Wound Number: 9 Location of the wound: left lateral foot Type of wound: unstageable Thickness: Full Size: 1.5cm x 1.5cm x <0.1cm Tunneling: none Undermining: none Sinus Tract: none Presence of Exudate: none Amount: None Color: Brown, yellow, red Odor: None Periwound Skin Appearance: Erythema Wound edges: approximated Pain (associated with wound): none at time of assessment How does patient state this happened? pt stated he is unsure how this happened but they are following with him at the intermediate Wound Number: 10 Location of the wound: left buttocks lateral Type of wound: stage 2 Thickness: Partial Size: 0.5cm x 0.5cm x 0.1cm Tunneling: none Undermining: none Sinus Tract: none Presence of Exudate: Serosanguineous Amount: Light Color: Red Odor: None Periwound Skin Appearance: Normal Wound edges: approximated Pain (associated with wound): none at time of assessment How does patient state this happened? pt stated he believes this is a bed sore from him not being able to get out of bed much at the intermediate Patient has multiple scratches over enitre body expect feet and periarea. Patient states that his areas are improving and he feels much better. No itching noted at time of assessment. Surface the patient is resting on: Isoflex SKIN PREVENTION RECOMMENDATION: 1. Pressure redistribution support surface as appropriate 2. Elevate heels 3. Remove boots/TEDS every shift and reapply 4. Head of bed 30 degrees as tolerated 5. Assess nutrition and hydration 6. Manage moisture 7. Avoid the use of containment devices while in bed 8. Use absorptive products on surfaces limit layers of linens on bed 9. Turn and reposition every 1-2 hours in bed and every 1 hour in chair as tolerated 10. Weight shifts every 15 minutes while up in chair 11. Offloading with pillows or device to keep heels elevated off bed 12. Monitor skin at least every shift 13. Inspect under medical devices twice a day WOUND TREATMENT RECOMMENDATIONS: Continue hydrocortison cream 1% TID. Continue heel raiser pro boots to bilateral feet while in bed. Continue wheelchair cushion when oob. Spoke with Dr. Matson regarding dressing change order with matthew her stated to apply therahoney to left heel wound, please redress left heel with betadine, adaptic, abds as well as the tubigrips please call podiatry with any question thanks. Continue dressing change order to distal middle. Contine dressing change order to right heel for protection. Continue stage 2 guidelines to left buttocks medial and left buttocks lateral. D/C stage 2 guidelines to left shoulder, mid back proximal, med back distal and rib area. D/C stage 2 guidelines to right knee.
--- NOTE | 2018-12-20 11:54 | NUR ---
Dr. Miller notified of wound care recommendations.
--- NOTE | 2018-12-20 12:00 | NUR ---
Updated clinicals faxed to [facility] for review. 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
--- NOTE | 2018-12-20 13:08 | NUR ---
OT NOTE Attempted to see pt this P.M. for second OT session and upon arrival pt was supine in bed. Pt had complaints of feeling nauseated and being fatigued, pt requesting to rest at this time. Will check back at a later time/date and continue with POC as able. LAURA Preston/Jennifer
[2018-12-20] MEDS ORDERED: OMNICEF300 MG PO (13:59)
--- NOTE | 2018-12-20 15:22 | NUR ---
PT SITTING UP IN BED TAKING BREATHING TREATMENT. PT ALERT ORIENTED, PLEASANT. PT DENIES ANY COMPLAINTS AT THIS TIME. AFTERNOON MEDICATIONS ADMINISTERED. RESPIRAITONS EASY AND UNLABORED. SAFETY MEASURES IN PLACE, HOB ELEVATED. CALL LIGHT IN REACH.
--- NOTE | 2018-12-20 16:02 | NUR ---
PHYSICAL THERAPY CO-SIGN I approve of the Physical Therapy notes written above. Chika Lugo, PT, DPT
--- NOTE | 2018-12-20 16:04 | NUR ---
SPOKE WITH DR KELLEY REGARDING PT. VERBAL ORDER RECEIVED FOR PT TO HAVE 40 MEQ KDUR PO NOW. WILL MEDICATE PT WHEN AVAILABLE TO PULL.
[2018-12-21] VITALS: BP 150/65
[2018-12-21 05:45] VITALS: BP 166/64
[2018-12-21 07:18] LABS: HEMATOCRIT 26.8 % (42.0-52.0); HEMOGLOBIN 8.4 g/dl (14.0-18.0); MEAN CELL VOLUME 95.4 fl (80.0-94.0); MEAN CORPUSCULAR HGB 29.9 pg (27.0-31.0); MEAN CORPUSCULAR HGB CONC 31.3 g/dl (33.0-37.0); MEAN PLATELET VOLUME 10.8 fl (9.6-12.3); NUCLEATED RED BLOOD CELL 0.2 % (0.0-0.0); PLATELET COUNT AUTOMATED 251 10*3/uL (130-400); RED BLOOD COUNT 2.81 10*6/uL (4.50-5.90); RED CELL DISTRI WIDTH 18.5 % (0-14.5)
[2018-12-21 08:00] VITALS: BP 170/82
[2018-12-21 08:16] LABS: ATYPICAL LYMPHS 1 % (0-0); BASOPHILS 1 % (0-1); PLATELET SUFFICIENCY NORMAL (NORMAL); POLYCHROMASIA SLIGHT; TOTAL CELLS COUNTED 100 #CELLS
[2018-12-21 08:32] LABS: CREATININE 3.18 mg/dL (0.70-1.30); POTASSIUM 3.4 mmol/L (3.5-5.1); TOTAL PROTEIN 5.4 gm/dL (6.4-8.2)
[2018-12-21 12:00] VITALS: BP 168/72
[2018-12-21] MEDS ORDERED: PROTONIX40 MG PO (12:19)
[2018-12-21] MEDS ORDERED: COREG12.5 M1 PO (12:19)
[2018-12-21] MEDS ORDERED: HYDRALAZINE HYD50 MG PO (12:19)
[2018-12-21] MEDS ORDERED: CARAFATE1 G1 PO (12:19)
[2018-12-21] MEDS ORDERED: ASPIRIN CHEWABL81 MG PO (12:19)
[2018-12-21] MEDS ORDERED: VITAMIN D32000 UNI1 PO (12:19)
[2018-12-21] MEDS ORDERED: WARFARIN SODIUM3 MG PO (12:19)
[2018-12-21] MEDS ORDERED: 'CLONIDINE0.1 MG PO (12:19)
--- NOTE | 2018-12-21 13:40 | NUR ---
PHYSICAL THERAPY Patient supine in bed at time of arrival. Patient declining to participate in therapy this date due to wanting to "rest". AUTO FINANCE SALES REP educated patient on benefits/purpose of therapy session and need for participation. Patient still declines. Fawn Peraza, AUTO FINANCE SALES REP
[2018-12-21] MEDS ORDERED: LASIX40 MG PO (13:41)
[2018-12-21] MEDS ORDERED: POTASSIUM CHLO20 ME3 PO (13:41)
--- NOTE | 2018-12-21 13:57 | NUR ---
WOUNDS PICS TAJEN EXCEPT FOR L HEEL WHCH PT REFUSED FOR THE DRSG TO BE REMOVED
--- NOTE | 2018-12-21 14:52 | NUR ---
DC BACK TO [facility]
--- NOTE | 2018-12-23 08:05 | NUR ---
PHYSICAL THERAPY CO-SIGN I approve of the Physical Therapy notes written above. Chika Lugo, PT, DPT
--- NOTE | 2018-12-23 09:22 | NUR ---
OCCUPATIONAL THERAPY CO-SIGN I approve of the Occupational Therapy notes written above. NAT HERNANDEZ OTR/Jennifer
== END 2018-12-21 14:52 | DRG 377 ==
LOC: ED 16:08 → 5E 17:28 → ICCU 17:28 → EDHOLD 17:28 → 5E 18:14 → ICCU 12-13 16:51 → 4E 12-19 06:16
PROVIDERS: Emergency Medicine; Family Medicine; Hospitalist; Internal Medicine Nephrology; Student in an Organized Health Care Education/Training Program; ADMIT Internal Medicine
PROC: 30233N1 Transfusion of Nonautologous Red Blood Cells into Peripheral Vein, Percutaneous Approach (ICD-10-PCS; principal; 2018-12-12)
PROC: 0DJ08ZZ Inspection of Upper Intestinal Tract, Via Natural or Artificial Opening Endoscopic (ICD-10-PCS; 2018-12-13)
PROC: 30233K1 Transfusion of Nonautologous Frozen Plasma into Peripheral Vein, Percutaneous Approach (ICD-10-PCS; 2018-12-13)
PROC: 0W9L0ZZ Drainage of Lower Back, Open Approach (ICD-10-PCS; 2018-12-16)
DX: K26.4 Chronic or unspecified duodenal ulcer with hemorrhage (principal); E43 Unspecified severe protein-calorie malnutrition; I13.0 Hypertensive heart and chronic kidney disease with heart failure and stage 1 through stage 4 chronic kidney disease, or unspecified chronic kidney disease; N18.4 Chronic kidney disease, stage 4 (severe); L02.212 Cutaneous abscess of back [any part, except buttock and flank]; L97.429 Non-pressure chronic ulcer of left heel and midfoot with unspecified severity; D68.9 Coagulation defect, unspecified; N17.9 Acute kidney failure, unspecified; K25.4 Chronic or unspecified gastric ulcer with hemorrhage; E78.5 Hyperlipidemia, unspecified; M19.90 Unspecified osteoarthritis, unspecified site; M10.9 Gout, unspecified; I25.10 Atherosclerotic heart disease of native coronary artery without angina pectoris; E11.621 Type 2 diabetes mellitus with foot ulcer; E87.5 Hyperkalemia; E87.8 Other disorders of electrolyte and fluid balance, not elsewhere classified; N40.0 Benign prostatic hyperplasia without lower urinary tract symptoms; K44.9 Diaphragmatic hernia without obstruction or gangrene; I45.10 Unspecified right bundle-branch block; D50.9 Iron deficiency anemia, unspecified; E87.6 Hypokalemia; D63.1 Anemia in chronic kidney disease; K29.71 Gastritis, unspecified, with bleeding; F17.210 Nicotine dependence, cigarettes, uncomplicated; L29.9 Pruritus, unspecified; E11.42 Type 2 diabetes mellitus with diabetic polyneuropathy; E83.42 Hypomagnesemia; R00.1 Bradycardia, unspecified; B96.4 Proteus (mirabilis) (morganii) as the cause of diseases classified elsewhere; I50.9 Heart failure, unspecified; E11.22 Type 2 diabetes mellitus with diabetic chronic kidney disease; I87.2 Venous insufficiency (chronic) (peripheral); K21.0 Gastro-esophageal reflux disease with esophagitis; D50.0 Iron deficiency anemia secondary to blood loss (chronic); E11.51 Type 2 diabetes mellitus with diabetic peripheral angiopathy without gangrene; L89.629 Pressure ulcer of left heel, unspecified stage; T46.5X5A Adverse effect of other antihypertensive drugs, initial encounter; Y92.89 Other specified places as the place of occurrence of the external cause; Z79.01 Long term (current) use of anticoagulants; I25.2 Old myocardial infarction; Z91.81 History of falling; Z82.49 Family history of ischemic heart disease and other diseases of the circulatory system; Z86.73 Personal history of transient ischemic attack (TIA), and cerebral infarction without residual deficits; Z79.899 Other long term (current) drug therapy; Z79.82 Long term (current) use of aspirin; Z68.34 Body mass index [BMI] 34.0-34.9, adult

== ENCOUNTER 2018-12-29 12:23 | Inpatient (IN) | payer MEDICARE, MEDICAID ==
[~2018-12-29] VITALS: Ht 175.3 cm; Wt 100.8 kg
[2018-12-29 12:23] VITALS: BP 160/92
[~2018-12-29 12:23] MED LIST changes: +'CLONIDINE0.1 MG PO; +CARAFATE1 G1 PO; +DAKIN'S473 ML T; +FEOSOL325 MG PO; +FLUVOXAMINE50 MG PO; +LASIX40 MG PO; +OMNICEF300 MG PO; +POTASSIUM CHLO20 ME3 PO; +PROTONIX40 MG PO; +VITAMIN D32000 UNI1 PO
[2018-12-29 13:00] VITALS: BP 158/94
[2018-12-29 13:13] LABS: BASO # 0.1 10*3/uL (0.0-0.1); BASO % 0.8 % (0.0-1.0); EOS # 0.9 10*3/uL (0.0-0.4); EOS % 9.2 % (1.0-4.0); HEMATOCRIT 29.5 % (42.0-52.0); HEMOGLOBIN 9.3 g/dl (14.0-18.0); LYMPH # 2.1 10*3/uL (1.3-4.4); LYMPH % 21.6 % (27.0-41.0); MEAN CELL VOLUME 96.7 fl (80.0-94.0); MEAN CORPUSCULAR HGB 30.5 pg (27.0-31.0); MEAN CORPUSCULAR HGB CONC 31.5 g/dl (33.0-37.0); MONO % 9.9 % (3.0-9.0); NEUT # 5.6 10*3/uL (2.3-7.9); NEUT % 57.7 % (47.0-73.0); PLATELET COUNT AUTOMATED 219 10*3/uL (130-400); RED BLOOD COUNT 3.05 10*6/uL (4.50-5.90); RED CELL DISTRI WIDTH 19.4 % (0-14.5); WHITE BLOOD COUNT 9.7 10*3/uL (4.8-10.8)
[2018-12-29 13:28] LABS: ALBUMIN 2.4 gm/dl (3.1-4.5); CREATININE 2.63 mg/dL (0.70-1.30); POTASSIUM 3.6 mmol/L (3.5-5.1); TOTAL PROTEIN 6.7 gm/dL (6.4-8.2)
[2018-12-29 13:29] LABS: BILIRUBIN NEGATIVE (NEGATIVE); BLOOD NEGATIVE (NEGATIVE); CLARITY SL CLOUDY (CLEAR); COLOR YELLOW (YELLOW); GLUCOSE NEGATIVE (NEGATIVE); KETONE NEGATIVE (NEGATIVE); LEUKO ESTERASE TRACE (NEGATIVE); NITRITE NEGATIVE (NEGATIVE); PH 5.5 (5.0-9.0); UROBILINOGEN 0.2 E.U./dl (0.2-1.0)
[2018-12-29 13:34] LABS: TROPONIN I 0.126 ng/ml (<0.045)
[2018-12-29 13:40] LABS: BACTERIA 1+; WBC 21-30 wbc/hpf (0-5)
--- NOTE | 2018-12-29 15:50 | NUR ---
LIZBETH @ 0.128 PER LAB WITH SOTO COOK DNP NOTIFIED.
[2018-12-29 16:00] VITALS: BP 181/85; BP 182/87
[2018-12-29 16:45] VITALS: BP 181/85
--- NOTE | 2018-12-29 16:45 | NUR ---
A 73, admitted to , under the services of JUAN DAVID Bray DO with a diagnosis of CELLULITS,ELEVATED TROPONINS Chief complaint is HAD A SPELL, BUTTOCKS PAIN. Patient arrived via stretcher from ER. Monitor applied. Initial assessment completed. Vital signs taken and recorded. JUAN DAVID BRAY DO notified of admission to the unit. Orders received. See assessment for past medical history, medications and allergies. Patient and/or family oriented to unit. [facility]. Clothing/patient valuable form completed. ELIEZER BENNETT
[2018-12-29] MEDS ORDERED: HYDRALAZINE HYD50 MG PO (16:58)
[2018-12-29] MEDS ORDERED: PROTONIX40 MG PO (17:01)
[2018-12-29] MEDS ORDERED: Carafate1 GM/10 ML PO (17:20)
--- NOTE | 2018-12-29 17:20 | NUR ---
MED REC UPDATED PER POLICY.
--- NOTE | 2018-12-29 17:24 | NUR ---
DR. BLACKMAN AND DR. FREIRE AWARE OF CONSULT.
--- NOTE | 2018-12-29 18:34 | NUR ---
NOTIFIED DR. DORAN OF NEEDING WOUND ORDERS.
--- NOTE | 2018-12-29 19:22 | NUR ---
DR DORAN AWARE OF CRITICAL TROPONIN. ALSO MADE AWARE OF HEART RATE IN THE 120'S AND MED REC BEING COMPLETE. STATES DO NOT NEED TO CALL CARDIO AT THIS TIME.
--- NOTE | 2018-12-29 19:26 | NUR ---
PATIENT RESTING IN BED WITH NO NEEDS MADE. DENIES CHEST PAIN OR SHORTNESS OF BREATH. BED IN LOWEST POSITION, CALL LIGHT IN REACH
[2018-12-29 20:00] VITALS: BP 145/75
--- NOTE | 2018-12-29 20:00 | NUR ---
DR DORAN AWARE OF FLUVOXAMINE AND CYMBALTA NOT RECOMMENDED TO BE GIVEN TOGETHER BUT THEY ARE BOTH ON THE [facility] LIST. STATES TO HOLD THEM BOTH
--- NOTE | 2018-12-29 20:03 | NUR ---
CALVIN IN PHARMACY AWARE TO HOLD FLUVOXAMINE AND CMYBALTA
--- NOTE | 2018-12-29 20:10 | NUR ---
DR TIMMONS CALLED BACK AND IS AWARE OF CONSULT. MADE AWARE OF ELEVATED TROPONINS, BLOOD PRESSURES, AND EKG. STATES IF NEXT TROPONIN IS NOT SIGNIFICANTLY ELEVATED TO JUST CALL IT TO THE RESIDENT.
--- NOTE | 2018-12-29 22:23 | NUR ---
DR DORAN AWARE OF CRITICAL TROPONIN
--- NOTE | 2018-12-29 22:42 | NUR ---
PATIENT MADE THIS RN PUT PILLS AND WATER IN PATIENT'S MOUTH. PATIENT THEN ASKED THIS RN TO PUT THE URINAL BETWEEN HIS LEGS. ASKED PATIENT IF HIS ARMS ARE WEAK AND PATIENT STATED "NO. I MOVE THEM UNLESS I DO NOT NEED TOO". PATIENT WAS EDUCATED ON THE IMPORTANCE OF MOVING HIS ARMS TO PREVENT WEAKNESS. PATIENT SHOOK HIS HEAD UP AND DOWN.
[2018-12-30] VITALS: BP 152/71
[2018-12-30 05:12] VITALS: BP 171/70
[2018-12-30 06:43] LABS: BASO # 0.1 10*3/uL (0.0-0.1); BASO % 0.6 % (0.0-1.0); EOS % 9.4 % (1.0-4.0); HEMATOCRIT 27.1 % (42.0-52.0); HEMOGLOBIN 8.4 g/dl (14.0-18.0); LYMPH # 2.3 10*3/uL (1.3-4.4); LYMPH % 22.3 % (27.0-41.0); MEAN CELL VOLUME 96.4 fl (80.0-94.0); MEAN CORPUSCULAR HGB 29.9 pg (27.0-31.0); MEAN PLATELET VOLUME 11.2 fl (9.6-12.3); MONO % 9.7 % (3.0-9.0); NEUT % 57.2 % (47.0-73.0); PLATELET COUNT AUTOMATED 218 10*3/uL (130-400); RED BLOOD COUNT 2.81 10*6/uL (4.50-5.90); RED CELL DISTRI WIDTH 18.9 % (0-14.5); WHITE BLOOD COUNT 10.5 10*3/uL (4.8-10.8)
[2018-12-30 07:01] LABS: CREATININE 2.48 mg/dL (0.70-1.30); FREE T4 1.2 ng/dl (0.76-1.46); POTASSIUM 3.3 mmol/L (3.5-5.1)
[2018-12-30 07:08] LABS: THYROID STIM HORMONE (HS) 1.46 uIU/ml (0.358-4.75)
--- NOTE | 2018-12-30 08:00 | NUR ---
IN ROOM AT THIS TIME. PT SITTING UP IN BED AWAKE, ALERT AND ORIENTED. NO STATED COMPLAINTS. BLOOD PRESSURE 137/50 AND HR 123 AT THIS TIME. NO S/S OF DISTRESS OR SOB ON ROOM AIR NOTED. RESPIRATIONS ARE EASY AND REGULAR. BED IN LOWEST LOCKED POSITION AND CALL LIGHT WITHIN REACH. WILL CONTINUE TO MONITOR.
--- NOTE | 2018-12-30 08:17 | NUR ---
CORNELIO HUGHES [id number] Please refer to the physician's history and physical for past medical history, comorbid conditions, and allergies. Diagnosis: ELEVATED TROPONIN,CELLULITIS Nura Score: 13,MODERATE RISK WOUND DESCRIPTIONS: Wound Number: 1 Location of the wound: left buttocks medial Type of wound: stage 2 Thickness: Partial Size: 0.5cm x 0.7cm x 0.1cm Tunneling: none Undermining: none Sinus Tract: none Presence of Exudate: Serosanguineous Amount: Light Color: Red Odor: None Periwound Skin Appearance: erythema Wound edges: approximated Pain (associated with wound): none at time of assessment How does patient state this happened? pt stated he believes this is a bed sore from him not being able to get out of bed much at the [facility] Wound Number: 2 Location of the wound: left heel Type of wound: unstageable Thickness: Full Size: 4.7cm x 6.5cm x 0.1cm Tunneling: none Undermining: none Sinus Tract: none Presence of Exudate: Serosanguineous Amount: Light Color: Red, yellow, brown Odor: mediumm Periwound Skin Appearance: Erythema Wound edges: approximated Pain (associated with wound): tender to touch How does patient state this happened? pt stated he has had this for a while and is getting treatment at the [facility] Wound Number: 3 Location of the wound: right back Type of wound: surgical Thickness: Partial Size: 0.2cm 2cm x 0.5cm Tunneling: none Undermining: none Sinus Tract: none Presence of Exudate: serosanguineous Amount: Light Color: Red Odor: None Periwound Skin Appearance: normal Wound edges: approximated Pain (associated with wound): none at time of assessment How does patient state this happened? pt stated he is unsure how this started but is uncomfortable Wound Number: 4 Location of the wound: RLE Thickness: Full Size: 15cm X 17cm X 0.1cm Tunneling: NONE Undermining: NONE Sinus Tract: NONE Presence of Exudate: Serous Amount: Moderate Color: Yellow Odor: None Periwound Skin Appearance: Edema Wound edges: APPROXIMATED Pain (associated with wound): TENDER TO TOUCH How does patient state this happened? PATIENT UNSURE HOW THIS HAPPENED. If wound is on legs/feet or hands, capillary refill time, pulses, color temp, sensation: CAP REFILL < 3 SECONDS. Wound Number: 5 Location of the wound: LLE Thickness: Full Size: 15cm X 15cm X 0.1cm Tunneling: NONE Undermining: NONE Sinus Tract: NONE Presence of Exudate: Serous Amount: Moderate Color: Yellow Odor: None Periwound Skin Appearance: Edema Wound edges: APPROXIMATED Pain (associated with wound): TENDER TO TOUCH How does patient state this happened? PATIENT UNSURE HOW THIS HAPPENED If wound is on legs/feet or hands, capillary refill time, pulses, color temp, sensation: CAP REFILL < 3 SECONDS Wound Number: 6 Location of the wound: left lateral foot Type of wound: unstageable Thickness: Full Size: 0.6cm x 0.8cm x <0.1cm Tunneling: none Undermining: none Sinus Tract: none Presence of Exudate: none Amount: None Color: Brown, yellow, red Odor: None Periwound Skin Appearance: Erythema Wound edges: approximated Pain (associated with wound): none at time of assessment How does patient state this happened? pt stated he is unsure how this happened but they are following with him at the [facility] Patient has multiple scratches over enitre body expect feet and periarea. Patient states that his areas are improving and he feels much better. No itching noted at time of assessment. Surface the patient is resting on: Isoflex SKIN PREVENTION RECOMMENDATION: 1. Pressure redistribution support surface as appropriate 2. Elevate heels 3. Remove boots/TEDS every shift and reapply 4. Head of bed 30 degrees as tolerated 5. Assess nutrition and hydration 6. Manage moisture 7. Avoid the use of containment devices while in bed 8. Use absorptive products on surfaces limit layers of linens on bed 9. Turn and reposition every 1-2 hours in bed and every 1 hour in chair as tolerated 10. Weight shifts every 15 minutes while up in chair 11. Offloading with pillows or device to keep heels elevated off bed 12. Monitor skin at least every shift 13. Inspect under medical devices twice a day WOUND TREATMENT RECOMMENDATIONS: DRESSING CHANGE TO LEFT LATERAL FOOT, RLE AND LLE: CLEANSE WITH NSS APPLY SUREPREP AROUND THE WOUND ALLOW TO DRY APPLY BETADINE AND COVER WITH DSD. CHANGE DAILY AND PRN SOILING. STAGE 2 GUIDLEINES TO LEFT BUTTOCK: CLEANSE WITH NSS APPLY SUREPREP AROUND THE WOUND ALLOW TO DRY APPLY THERAHONEY AND COVER WITH OPTIFOAM GENTLE. CHANGE EVERY 2 DAYS AND PRN. DRESSING CHANGE TO LEFT HEEL: CLEANSE WITH NSS APPLY SUREPREP AROUND THE WOUND ALLOW TO DRY APPLY THERAHONEY AND COVER WITH DSD. CHANGE EVERY 2 DAYS AND PRN SOILING. PARTIAL THICKNESS GUIDELINES TO RIGHT BACK: CLEANSE WITH NSS APPLY SUREPREP AROUND THE WOUND ALLOW TO DRY APPLY HYDROGEL TO WOUND BASE AND COVER WITH OPTIFOAM GENTLE. CHANGE EVERY 2 DAYS AND PRN SOILING. HEEL RAISER PRO BOOTS WHILE IN BED.
--- NOTE | 2018-12-30 09:00 | NUR ---
IN TO ASSESS NEW WOUND THAT WOUND CARE INFORMED ME OF. PT REFUSES TO LET ME LOOK AT IT. STATES HIS HEEL HURTS TOO BADLY TO HAVE ME TOUCH THEM. CALL LIGHT WITHIN REACH.
--- NOTE | 2018-12-30 09:01 | NUR ---
Nursing screen received and occupational therapy referrals. Will follow up with patient. Thank you. Chitra Barr, OTR/L
--- NOTE | 2018-12-30 09:45 | NUR ---
Occupational therapy orders received and chart reviewed. Per chart review, patient has B/L LE heel wounds. OTR was unable to determine if a patient had a weight-bearing status due to his wounds via chart review. OTR asked nurse for further clarification. Nursing called Dr. Guo who stated NWB. Will follow up with patient and physician for further clarification of which LE is NWB. Thank you. Chitra Barr, OTR/L
--- NOTE | 2018-12-30 10:26 | NUR ---
Dr. Mckeon notified of wound care recommendations.
[2018-12-30 12:00] VITALS: BP 143/63
--- NOTE | 2018-12-30 13:00 | NUR ---
PT IS RESIDENTIAL CARE AT [facility]. WILL RETURN WHEN MEDICALLY STABLE PER PT. WILL CONTINUE TO FOLLOW.
--- NOTE | 2018-12-30 15:22 | NUR ---
Occupational therapy orders received and OT evaluation completed in full on floor five. Patient precautions include fall risk, ww use, bed alarm, fearful of falling, NWB L LE, and WBAT R LE. Per OT evdanisha, OT recommends SNF. Patient complexity is moderate, 81234. Thank you for the referral. Chitra Barr, OTR/L
--- NOTE | 2018-12-30 15:22 | NUR ---
PHYSICAL THERAPY Physical therapy evaluation complete, 5E. Moderate complexity PT evaluation performed, [address]. Per nursing, patient is NWB on Left LE and WBAT on Right LE. PT to progress bed mobility, transfers, LE strength, and gait per POC. Recommend return to LTC facility at discharge. Thank you. Tanisha Sharp,PT,DPT
[2018-12-30 16:00] VITALS: BP 152/86
--- NOTE | 2018-12-30 18:33 | NUR ---
PHYSICAL THERAPY Nursing screen received and chart reviewed. Physical therapy order received and completed 12/30/18. Thank you. Tanisha Sharp,PT,DPT
[2018-12-30 20:00] VITALS: BP 140/87
[2018-12-31] VITALS: BP 140/81
[2018-12-31 05:14] VITALS: BP 152/79
[2018-12-31 08:00] VITALS: BP 151/70
--- NOTE | 2018-12-31 08:09 | NUR ---
PHYSICAL THERAPY Nsg screen recived, pt has already been evaluated plese see note/chart for full details. Thank you Yaneli Frenhc PT
[2018-12-31 08:16] LABS: BASO # 0.1 10*3/uL (0.0-0.1); BASO % 0.7 % (0.0-1.0); EOS # 1.6 10*3/uL (0.0-0.4); EOS % 17.7 % (1.0-4.0); HEMATOCRIT 28.8 % (42.0-52.0); HEMOGLOBIN 8.8 g/dl (14.0-18.0); LYMPH # 1.8 10*3/uL (1.3-4.4); LYMPH % 20.8 % (27.0-41.0); MEAN CELL VOLUME 97.6 fl (80.0-94.0); MEAN CORPUSCULAR HGB 29.8 pg (27.0-31.0); MEAN CORPUSCULAR HGB CONC 30.6 g/dl (33.0-37.0); MEAN PLATELET VOLUME 10.4 fl (9.6-12.3); MONO # 0.7 10*3/uL (0.1-1.0); MONO % 8.3 % (3.0-9.0); NEUT # 4.6 10*3/uL (2.3-7.9); NEUT % 51.5 % (47.0-73.0); PLATELET COUNT AUTOMATED 216 10*3/uL (130-400); RED BLOOD COUNT 2.95 10*6/uL (4.50-5.90); RED CELL DISTRI WIDTH 18.9 % (0-14.5); WHITE BLOOD COUNT 8.8 10*3/uL (4.8-10.8)
[2018-12-31 08:26] LABS: CREATININE 2.41 mg/dL (0.70-1.30); POTASSIUM 3.5 mmol/L (3.5-5.1)
--- NOTE | 2018-12-31 10:30 | NUR ---
Consultant Dietitian in to see patient. No new needs or request at this time. When medically stable he will be discharged to [facility] where he is a LTC resident. Per multidisciplinary discharge planning meeting he has been running tachycardic.
--- NOTE | 2018-12-31 11:16 | NUR ---
OT NOTE Pt was seen this A.M. 1:1 for 26 minute OT session. Upon arrival pt was supine in bed. Pt identified by name and and had complaints of L heel pain which he did not rate on 0-10 pain scale. Pt transferred supine to sit EOB with SBA. Pt completed multiple sit to stand transfers from bed level with Cielo and use of w/w. Pt was non compliant with non weight bearing status to his LLE throughout. Challenged pt's static standing tolerance needed for increased I in self care tasks and functional transfers, pt was able to tolerate aprox 30-45 seconds before sitting due to fatigue. Requested for pt to doff and queenie B socks and pt required modA for managing over wraps and inital start over his toes. Attempted to completed standing pivot from the EOB to the bedside commode for increased I in ADL's and pt reported "I will never make it so I am not going to try. When I have to go I have to go." Pt was left supine in bed with call light in hand, tray table in place, and bed alarm activated for safety. Continue with rec D/C plan to return to LTC. LAURA Preston/Jennifer
--- NOTE | 2018-12-31 11:22 | NUR ---
DEPARTMENT STORE SALESPERSON faxed updates to Cheryl. 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 -JOÃO Gray
--- NOTE | 2018-12-31 11:22 | NUR ---
PHYSICAL THERAPY Patient presented to therapy with report of NWB on the L LE. Patient was supine in bed with head of bed elevated and bed alarm activated. Patient was identified by name and on wristband. Patient gives informed consent for treatment. Patient performed supine to sitting at EOB transfer with SBA. Patient sat on EOB unassisted. Patient sit to stand from EOB with MIN A X 1 and verbal cues for pushing off of bed with one hand. Patient stood 3 Xs at Walker with CGA X 1 for 30 seconds 1st attempt 2nd) 45 seconds 3rd) 45 seconds. Patient declined to ambulate becuase he says he is too weak to walk. Patient was transferred back to supine in bed with SBA when his Managed Care Specialist came into the room to check patient's L heel. Patient was left in supine in bed with head of bed elevated and bed alarm activated and two Podiatrists present attending to the patient. Patient was 1:1 with this TAILING MACHINE OPERATOR for 20 minutes total. NIKKI PIERCE TAILING MACHINE OPERATOR
--- NOTE | 2018-12-31 11:29 | NUR ---
PODIATRY HERE AT THIS TIME, DRESSINGS TO BILATERAL LOWER EXTREMITIES PERFORMED AT THIS TIME.
[2018-12-31 12:00] VITALS: BP 161/92
--- NOTE | 2018-12-31 12:43 | NUR ---
PT COMPLAINING ABOUT DIETARY RESTRICTIONS, REQUESTING REGULAR DIET. SPOKE WITH DR CHAVEZ REGARDING THIS.
--- NOTE | 2018-12-31 14:15 | NUR ---
PT OFF FLOOR FOR LUNG SCAN AT THIS TIME.
--- NOTE | 2018-12-31 15:37 | NUR ---
Nursing screen received and patient already on Occupational Therapy caseload and being treated. Rupal Nugent OTR/l
[2018-12-31 16:00] VITALS: BP 154/77
--- NOTE | 2018-12-31 19:50 | NUR ---
24 HR CHART CHECK COMPLETE
[2018-12-31 20:00] VITALS: BP 156/87
[2019-01-01] VITALS: BP 140/65
--- NOTE | 2019-01-01 03:51 | NUR ---
PT ASLEEP IN BED. RESPIRATIONS EASY. NO S/S OF DISTRESS NOTED. WILL MONITOR. CALL LIGHT IN REACH.
[2019-01-01 06:12] LABS: BASO # 0.1 10*3/uL (0.0-0.1); BASO % 0.8 % (0.0-1.0); EOS # 1.6 10*3/uL (0.0-0.4); EOS % 17.2 % (1.0-4.0); HEMATOCRIT 26.8 % (42.0-52.0); HEMOGLOBIN 8.1 g/dl (14.0-18.0); LYMPH # 1.9 10*3/uL (1.3-4.4); MEAN CELL VOLUME 98.5 fl (80.0-94.0); MEAN CORPUSCULAR HGB 29.8 pg (27.0-31.0); MEAN CORPUSCULAR HGB CONC 30.2 g/dl (33.0-37.0); MEAN PLATELET VOLUME 10.9 fl (9.6-12.3); MONO # 0.7 10*3/uL (0.1-1.0); MONO % 7.9 % (3.0-9.0); NEUT # 4.8 10*3/uL (2.3-7.9); NEUT % 52.2 % (47.0-73.0); PLATELET COUNT AUTOMATED 228 10*3/uL (130-400); RED BLOOD COUNT 2.72 10*6/uL (4.50-5.90); RED CELL DISTRI WIDTH 18.8 % (0-14.5); WHITE BLOOD COUNT 9.2 10*3/uL (4.8-10.8)
[2019-01-01 06:28] LABS: CREATININE 2.46 mg/dL (0.70-1.30)
--- NOTE | 2019-01-01 07:15 | NUR ---
Patient resting quietly with no c/o discomfort. Respirations easy and regular. Vital signs stable. No overt distress. KATHE SARAVIA
[2019-01-01 08:00] VITALS: BP 154/68
--- NOTE | 2019-01-01 08:25 | NUR ---
PHYSICAL THERAPY PT SUPINE IN BED UPON ARRIVAL THIS A.M. PT STATED "I DON'T NEED THERAPY. I DON'T FEEL WELL. LETS DO IT LATER." PHYSICAL THERAPY WILL ATTEMPT AGAIN AT A LATER TIME/DATE. JEFF HOSKINS PTA
--- NOTE | 2019-01-01 09:00 | NUR ---
Comparison Shopper in to see patient. No new needs or request at this time. When medically stable he will be discharged to [facility] where he is a LTC resident. He remains tachycardic. fat pressroom worker following.
--- NOTE | 2019-01-01 09:49 | NUR ---
OT NOTE PATIENT IN BED UPON ARRIVAL THIS DATE. PATIENT REPORTS NOT FEELING WELL ENOUGH TO PARTICIPATE. NURSING CONSULTED. WILL TRY BACK LATER TIME/DATE. TANA SANCHEZ/Jennifer
[2019-01-01 12:00] VITALS: BP 127/58
--- NOTE | 2019-01-01 12:48 | NUR ---
OT NOTE Attempted to see pt this P.M. for OT session and upon arrival pt was eating his lunch. Will check back at a later time/date and continue with POC as able. LAURA Preston/Jennifer
--- NOTE | 2019-01-01 13:42 | NUR ---
OT NOTE Second attempt made to see pt this P.M. for OT session and upon arrival pt had complaints of feeling nauseated and having a headache requesting to rest at this time. Will check back at a later time/date and continue with POC as able. LAURA Preston/Jennifer
[2019-01-01 16:00] VITALS: BP 121/61
[2019-01-01 20:00] VITALS: BP 116/58
[2019-01-02] VITALS: BP 131/64
--- NOTE | 2019-01-02 03:00 | NUR ---
PATIENT BATHED, DRESSINGS CHANGED TO BUTTOCKS AND BACK.
[2019-01-02 06:32] LABS: INTERNATIONAL NORM RATIO 1.1 (2.0-3.5)
--- NOTE | 2019-01-02 07:45 | NUR ---
Patient resting quietly with no c/o discomfort. Respirations easy and regular. Vital signs stable. No overt distress. KATHE SARAVIA
[2019-01-02 08:00] VITALS: BP 156/80
[2019-01-02 08:07] LABS: BASO # 0.1 10*3/uL (0.0-0.1); BASO % 0.7 % (0.0-1.0); EOS # 1.5 10*3/uL (0.0-0.4); EOS % 15.7 % (1.0-4.0); HEMATOCRIT 27.7 % (42.0-52.0); HEMOGLOBIN 8.4 g/dl (14.0-18.0); LYMPH # 2.3 10*3/uL (1.3-4.4); LYMPH % 23.1 % (27.0-41.0); MEAN CELL VOLUME 99.6 fl (80.0-94.0); MEAN CORPUSCULAR HGB 30.2 pg (27.0-31.0); MEAN CORPUSCULAR HGB CONC 30.3 g/dl (33.0-37.0); MEAN PLATELET VOLUME 10.9 fl (9.6-12.3); MONO # 0.8 10*3/uL (0.1-1.0); MONO % 8.4 % (3.0-9.0); NEUT % 51.3 % (47.0-73.0); PLATELET COUNT AUTOMATED 224 10*3/uL (130-400); RED BLOOD COUNT 2.78 10*6/uL (4.50-5.90); RED CELL DISTRI WIDTH 18.6 % (0-14.5); WHITE BLOOD COUNT 9.8 10*3/uL (4.8-10.8)
[2019-01-02 08:12] LABS: CREATININE 2.44 mg/dL (0.70-1.30); POTASSIUM 4.5 mmol/L (3.5-5.1)
--- NOTE | 2019-01-02 09:00 | NUR ---
PT UP TO CHAIR/WALKED WITH PT.
--- NOTE | 2019-01-02 09:19 | NUR ---
PHYSICAL THERAPY Patient presented to therapy in supine with head of bed elevated and bed alarm activated. Patient was identifed by name and on wristband. Patient gives informed consent for treatment. Patient reports his EXTRACTOR TENDER RAW STOCK being in to see him yesterday and the patient says the filing machine operator informed him that he now is WBAT on the L LE. This MANAGER PARKING checked with JOSUÉ ARCHULETA, who is the patient's nurse. JOSUÉ ARCHULETA says that the patient CAN be TTWB on the L LE and put weight thru the ball of L FOOT. Patient says this is what the Zipper Trimmer said to him yesterday. Patient performed supine to sitting at EOB with SBA. Patient sat on EOB unassisted. Patient performed sit to stand from EOB 3 Xs with SBA with verbal cues for pushing off of the bed with hands. Patient stood 3 Xs at Wh Walker with SBA for 1st attempt) 1 minute 4 seconds 2nd attempt) 45 seconds 3rd attempt) 40 seconds. Patient required constant verbal cues for maintaining TTWB on L LE and for upright posture. Patient ambulated 30' x 1 with Wh Walker and CGA X 1 with rolling chair pushed behind patient by other therapist with verbal cues for maintaining TTWB on L LE and keeping heel off of the floor. Patient transferred into bedside chair pulled up behind him with CGA X 1. Patient was left in the bedside chair with tray table in front of patient. Patient was left with call light within reach and chair alarm tested and attached to patient. Patient was 1:1 with this MANAGER PARKING for 25 minutes total. NIKKI PIERCE MANAGER PARKING
--- NOTE | 2019-01-02 09:20 | NUR ---
OT NOTE Pt was seen this A.M. 1:1 for 30 minute OT session. Upon arrival pt was supine in bed. Pt identified by name and and had no complaints at this time. Pt transferred supine to sit EOB with SBA. Pt donned B socks with modA. Multiple sit to stand transfers were completed from bed level with Cielo and use of w/w for UE support. Challenged pt's static standing tolerance needed for increased I in self care tasks and functional transfers. Pt was able to tolerate aprox 45-60 seconds at a time before sitting due to fatigue, throughout pt was non compliant with NWB to LLE even when verbal prompts were provided. Functional mobility was then completed to the bathroom and back with CGA and use of w/w with constant verbal prompts for non weight bearing, pt continued to be non compliant. While sitting EOB pt completed BUE towel exercises over all planes of motion for 1 X 10 to increase UE strength needed for increased I in self care tasks and functional transfers. Pt was left sitting upright in the recliner with call light in hand, tray table in place, and body alarm activated for safety. Continue with rec D/C plan to return to LTC. LAURA Preston/Jennifer
--- NOTE | 2019-01-02 10:51 | NUR ---
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 -Corina Saxena,SMOKING PIPE DRILLER AND THREADER
--- NOTE | 2019-01-02 11:00 | NUR ---
PT SITS IN CHAIR AND HAS BEEN INCONTINENT OF BM AND URINE X2. INSTRUCTED TO CALL FOR ASSISTANCE INSTEAD OF SOILING SELF. URINAL BESIDE CHAIR.
[2019-01-02] MEDS ORDERED: METOPROLOL SUC100 M1 PO (11:33)
[2019-01-02] MEDS ORDERED: COUMADIN5 M2 PO (11:33)
[2019-01-02 12:00] VITALS: BP 131/75
--- NOTE | 2019-01-02 13:22 | NUR ---
DR FLOR STATES TO NOT REMOVE BLE DRESSINGS FOR ANY WOUND DRESSINGS HE JUST REDRESSED THEM.
--- NOTE | 2019-01-02 14:25 | NUR ---
HOSEMAN recieved notice of the patients discharge. HOSEMAN spoke with RN. HOSEMAN spoke with Kj Butler and arranged a 2:30pm transport. HOSEMAN notified RN of this time. HOSEMAN notified Cheryl. HOSEMAN reached out to patient sitster and left a message for return call. HOSEMAN reached out to nephchucky maude. He is aware of patients discharge. -JOÃO Gray
--- NOTE | 2019-01-02 14:45 | NUR ---
REPORT CALLED TO [facility], QUESTIONS ANSWERED.
--- NOTE | 2019-01-02 15:24 | NUR ---
OCCUPATIONAL THERAPY CO-SIGN I approve of the Occupational Therapy notes written above. NAT HERNANDEZ OTR/Jennifer
[2019-01-02 16:00] VITALS: BP 140/62
--- NOTE | 2019-01-02 17:13 | NUR ---
LEAVING CARE OF [place].
--- NOTE | 2019-01-03 08:10 | NUR ---
PHYSICAL THERAPY CO-SIGN I approve of the Physical Therapy notes written above. Yaneli French PT
== END 2019-01-02 17:13 | DRG 602 ==
LOC: ED 12:23 → EDHOLD 14:41 → 5E 14:41
PROVIDERS: Internal Medicine; Nurse Practitioner Family; ADMIT Emergency Medicine
DX: L03.115 Cellulitis of right lower limb (principal); E43 Unspecified severe protein-calorie malnutrition; N18.4 Chronic kidney disease, stage 4 (severe); I13.0 Hypertensive heart and chronic kidney disease with heart failure and stage 1 through stage 4 chronic kidney disease, or unspecified chronic kidney disease; N39.0 Urinary tract infection, site not specified; K26.9 Duodenal ulcer, unspecified as acute or chronic, without hemorrhage or perforation; L03.116 Cellulitis of left lower limb; D53.9 Nutritional anemia, unspecified; Z66 Do not resuscitate; Z51.5 Encounter for palliative care; M10.9 Gout, unspecified; I25.10 Atherosclerotic heart disease of native coronary artery without angina pectoris; L89.629 Pressure ulcer of left heel, unspecified stage; I87.2 Venous insufficiency (chronic) (peripheral); L89.891 Pressure ulcer of other site, stage 1; J44.9 Chronic obstructive pulmonary disease, unspecified; I50.9 Heart failure, unspecified; R00.0 Tachycardia, unspecified; R79.89 Other specified abnormal findings of blood chemistry; N40.0 Benign prostatic hyperplasia without lower urinary tract symptoms; M19.90 Unspecified osteoarthritis, unspecified site; E11.42 Type 2 diabetes mellitus with diabetic polyneuropathy; K21.9 Gastro-esophageal reflux disease without esophagitis; E78.5 Hyperlipidemia, unspecified; E11.22 Type 2 diabetes mellitus with diabetic chronic kidney disease; E11.65 Type 2 diabetes mellitus with hyperglycemia; I25.2 Old myocardial infarction; Z79.01 Long term (current) use of anticoagulants; Z86.73 Personal history of transient ischemic attack (TIA), and cerebral infarction without residual deficits; Z87.891 Personal history of nicotine dependence; Z82.49 Family history of ischemic heart disease and other diseases of the circulatory system; Z79.899 Other long term (current) drug therapy; Z79.82 Long term (current) use of aspirin; Z68.32 Body mass index [BMI] 32.0-32.9, adult

== ENCOUNTER 2019-02-04 11:44 | Inpatient (IN) | payer MEDICARE, MEDICAID ==
[2019-02-04] VITALS (10 sets, daily range): BP systolic 95–136; BP diastolic 40–96
[~2019-02-04] VITALS: Ht 175.3 cm; Wt 91.2 kg
[~2019-02-04 11:44] MED LIST changes: +COUMADIN5 M2 PO; +Carafate1 GM/10 ML PO; +METOPROLOL SUC100 M1 PO
--- NOTE | 2019-02-04 14:03 | NUR ---
PT WILL AGREE TO LABS @ THIS TIME AFTER SPEAKING AGAIN WITH NURSE AND LAB NOTIFIED.
[2019-02-04 14:20] LABS: BASO % 0.4 % (0.0-1.0); EOS # 0.5 10*3/uL (0.0-0.4); EOS % 4.6 % (1.0-4.0); HEMATOCRIT 23.5 % (42.0-52.0); HEMOGLOBIN 7.3 g/dl (14.0-18.0); LYMPH # 1.4 10*3/uL (1.3-4.4); LYMPH % 12.9 % (27.0-41.0); MEAN CELL VOLUME 98.7 fl (80.0-94.0); MEAN CORPUSCULAR HGB 30.7 pg (27.0-31.0); MEAN CORPUSCULAR HGB CONC 31.1 g/dl (33.0-37.0); MEAN PLATELET VOLUME 11.1 fl (9.6-12.3); MONO # 0.6 10*3/uL (0.1-1.0); MONO % 5.5 % (3.0-9.0); NEUT # 8.4 10*3/uL (2.3-7.9); NEUT % 76.1 % (47.0-73.0); PLATELET COUNT AUTOMATED 198 10*3/uL (130-400); RED BLOOD COUNT 2.38 10*6/uL (4.50-5.90); RED CELL DISTRI WIDTH 18.9 % (0-14.5); WHITE BLOOD COUNT 11.1 10*3/uL (4.8-10.8)
[2019-02-04 14:37] LABS: ALBUMIN 1.4 gm/dl (3.1-4.5); CREATININE 3.37 mg/dL (0.70-1.30); POTASSIUM 3.6 mmol/L (3.5-5.1); TOTAL PROTEIN 4.8 gm/dL (6.4-8.2); TROPONIN I 0.041 ng/ml (<0.045)
[2019-02-04 14:43] LABS: ACT PARTIAL THROMBO TIME 54.1 SECONDS (20.0-32.1); INTERNATIONAL NORM RATIO 4.3 (2.0-3.5)
--- NOTE | 2019-02-04 19:21 | NUR ---
PT REFUSING ANY MORE IVS AT THIS TIME. "PT STATES I DON'T WANT ANYMORE. YOU ALWAYS STICK ME HERE"
[2019-02-04] MEDS ORDERED: IMODIUM A-D2 M2 PO (21:23)
[2019-02-04] MEDS ORDERED: SANTYL30 GM T (21:24)
[2019-02-04] MEDS ORDERED: TACTINAL325 MG PO (21:26)
[2019-02-04] MEDS ORDERED: MILK OF MA400 MG/5 M PO (21:27)
--- NOTE | 2019-02-04 21:50 | NUR ---
CONSULTED DR. MICHAELS; NEW ORDERS RECEIVED.
--- NOTE | 2019-02-04 22:30 | NUR ---
CALLED DR. CHAVEZ TO LET HIM KNOW THAT PT'S MED REC WAS UPDATED.
--- NOTE | 2019-02-04 22:40 | NUR ---
INCONTINENT OF A LARGE AMOUNT OF LOOSE DARK BLOODY STOOL. INCONTINENT CARE PROVIDED; PT. IS EXTREMELY EXCORIATED ON HIS SCROTUM AND INNER THIGHS. CREAM APPLIED.
--- NOTE | 2019-02-04 22:45 | NUR ---
MEDICATED WITH MS SLOW IV PUSH FOR C/O HEEL PAIN & GENERALIZED DISCOMFORT.
--- NOTE | 2019-02-04 22:50 | NUR ---
FFP STARTED PER PROTOCOL.
--- NOTE | 2019-02-04 23:15 | NUR ---
FFP COMPLETED. PT. STABLE; VSS; SEE FLOW SHEET.
--- NOTE | 2019-02-04 23:19 | NUR ---
PT. STILL C/O PAIN; MEDICATED WITH NORCO FOR C/O HEEL PAIN & GENERALIZED DISCOMFORT.
[2019-02-05] VITALS (12 sets, daily range): BP systolic 88–146; BP diastolic 48–88
--- NOTE | 2019-02-05 01:00 | NUR ---
RESTING IN BED WITH EYES CLOSED; PAIN MEDICATION GIVEN EARLIER APPARENTLY EFFECTIVE. CALL LIGHT WITHIN REACH.
--- NOTE | 2019-02-05 03:27 | NUR ---
MEDICATED WITH MS SLOW IV PUSH FOR C/O HEEL/BUTTOCKS PAIN.
--- NOTE | 2019-02-05 04:15 | NUR ---
RESTING IN BED WITH EYES CLOSED; MORPHINE APPEARS TO BE EFFECTIVE.
--- NOTE | 2019-02-05 04:31 | NUR ---
CORNELIO HUGHES [id number] Please refer to the physician's history and physical for past medical history, comorbid conditions, and allergies. Diagnosis: GI BLEED COAGULOPATHY ACUTE BLOOD LOSS ANEMIA Nura Score: 13,MODERATE RISK WOUND DESCRIPTIONS: Wound Number: 1 Location of the wound: right inner thigh Type of wound: IAD Thickness: Partial Size: 1.8cm x 3.5cm x 0.1cm Tunneling: none Undermining: none Sinus Tract: none Presence of Exudate: Serous sanguineous Amount: Light Color: Red Odor: None Periwound Skin Appearance: Erythema, warmth Wound edges: approximated Pain (associated with wound): tender to touch How does patient state this happened? pt unsure when this started Wound Number 2: Left inner thigh is red and blanchable at time of assessment. No open areas noted at time of assessment. No drainage noted at time of assessment. Wound Number: 3 Location of the wound: left buttocks Type of wound: stage 2 Thickness: Partial Size: 1.1cm x 0.8cm x 0.1cm Tunneling: none Undermining: none Sinus Tract: none Presence of Exudate: Serosanguineous Amount: Light Color: Red Odor: None Periwound Skin Appearance: erythema Wound edges: approximated Pain (associated with wound): none at time of assessment How does patient state this happened? pt stated he believes this is a bed sore from him not being able to get out of bed much at the long-term Wound Number 4: Posterior upper thighs are red and blanchable at time of assessment. No open areas noted at time of assessment. No drainage noted at time of assessment. Wound Number: 5 right heel is red and blanchable at time of assessment. No open areas noted at time of assessment. No drainage noted at time of assessment. Wound Number: 6 Location of the wound: left heel Type of wound: unstageable Thickness: Full Size: 5.4cm x 7.3cm x 0.1cm Tunneling: none Undermining: none Sinus Tract: none Presence of Exudate: Serosanguineous Amount: Light Color: Red, yellow, brown Odor: mediumm Periwound Skin Appearance: Erythema Wound edges: approximated Pain (associated with wound): tender to touch How does patient state this happened? pt stated he has had this for a while and is getting treatment at the long-term Wound Number: 7 Location of the wound: left lateral foot distal Type of wound: unstageable Thickness: Full Size: 1.5cm x 2.1cm x <0.1cm Tunneling: none Undermining: none Sinus Tract: none Presence of Exudate: none Amount: None Color: Brown, yellow, red Odor: None Periwound Skin Appearance: Erythema Wound edges: approximated Pain (associated with wound): none at time of assessment How does patient state this happened? pt stated he is unsure how this happened but they are following with him at the long-term Wound Number: 8 Location of the wound: left lateral foot medial Type of wound: unstageable Thickness: Full Size: 0.5cm x 0.3cm x <0.1cm Tunneling: none Undermining: none Sinus Tract: none Presence of Exudate: none Amount: None Color: Brown, red Odor: None Periwound Skin Appearance: Erythema Wound edges: approximated Pain (associated with wound): none at time of assessment How does patient state this happened? pt stated he is unsure how this happened but they are following with him at the long-term Patient has multiple scratches over enitre body expect feet and periarea. Patient states this is due to him scratching himself because he is constantly itchy. Surface the patient is resting on: Position Pro SKIN PREVENTION RECOMMENDATION: 1. Pressure redistribution support surface as appropriate 2. Elevate heels 3. Remove boots/TEDS every shift and reapply 4. Head of bed 30 degrees as tolerated 5. Assess nutrition and hydration 6. Manage moisture 7. Avoid the use of containment devices while in bed 8. Use absorptive products on surfaces limit layers of linens on bed 9. Turn and reposition every 1-2 hours in bed and every 1 hour in chair as tolerated 10. Weight shifts every 15 minutes while up in chair 11. Offloading with pillows or device to keep heels elevated off bed 12. Monitor skin at least every shift 13. Inspect under medical devices twice a day WOUND TREATMENT RECOMMENDATIONS: Heel raiser pro boots to bilateral feet while in bed Wheelchair cushion when oob Dressing change: Cleanse right inner thigh, left inner thigh, right posterior thigh, left posterior thigh and left buttocks with nss and apply calazime every shift and prn for soiling. Dressing change: Apply sureprep to right heel allow time to dry then cover with optifoam gentle for protection. Full thickness guidelines: Cleanse left heel with nss and apply therahoney to wound bed cover with maxorb then apply abd pad and lightly wrap with kerlix daily and prn for soiling Full thickness guidelines: Cleanse left lateral aspect of foot distal and medial with nss and apply sureprep around the wound therahoney to wound bed and cover with optifoam gentle daily and prn for soiling Imaging studies to left foot due to non-healing wound. Venous and arterial studies to bilateral lower extremities due to non-healing wounds Consult podiatry for possible debridement if studies allow.
--- NOTE | 2019-02-05 05:09 | NUR ---
DR. CHAVEZ NOTIFIED EARLIER IN SHIFT OF PATIENT HAVING AN APPT. WITH DR. KELLEY TOMORROW (OR TODAY) AT 1 P.M. CONSULT PUT IN FOR DR. KELLEY.
[2019-02-05 06:12] LABS: ALBUMIN 1.6 gm/dl (3.1-4.5); CREATININE 3.45 mg/dL (0.70-1.30); FREE T4 1.11 ng/dl (0.76-1.46); PHOSPHOROUS 3.6 mg/dL (2.5-4.9); POTASSIUM 3.5 mmol/L (3.5-5.1); TOTAL PROTEIN 5.1 gm/dL (6.4-8.2)
[2019-02-05 06:16] LABS: THYROID STIM HORMONE (HS) 1.96 uIU/ml (0.358-4.75)
--- NOTE | 2019-02-05 06:25 | NUR ---
DR. CHAVEZ CONTACTED AT THIS TIME REGARDING CALCIUM OF 6.9 BY RENÉ ABDULLAHI RN.
[2019-02-05 06:38] LABS: BASO # 0.1 10*3/uL (0.0-0.1); BASO % 0.6 % (0.0-1.0); EOS # 0.7 10*3/uL (0.0-0.4); EOS % 8.7 % (1.0-4.0); HEMATOCRIT 24.3 % (42.0-52.0); HEMOGLOBIN 7.6 g/dl (14.0-18.0); LYMPH # 1.7 10*3/uL (1.3-4.4); LYMPH % 20.7 % (27.0-41.0); MEAN CELL VOLUME 96.4 fl (80.0-94.0); MEAN CORPUSCULAR HGB 30.2 pg (27.0-31.0); MEAN CORPUSCULAR HGB CONC 31.3 g/dl (33.0-37.0); MONO # 0.6 10*3/uL (0.1-1.0); MONO % 6.8 % (3.0-9.0); NEUT % 62.5 % (47.0-73.0); PLATELET COUNT AUTOMATED 189 10*3/uL (130-400); RED BLOOD COUNT 2.52 10*6/uL (4.50-5.90); RED CELL DISTRI WIDTH 18.6 % (0-14.5); WHITE BLOOD COUNT 8.1 10*3/uL (4.8-10.8)
[2019-02-05 06:39] LABS: ACT PARTIAL THROMBO TIME 51.2 SECONDS (20.0-32.1); INTERNATIONAL NORM RATIO 3.1 (2.0-3.5)
--- NOTE | 2019-02-05 06:41 | NUR ---
DR. KELLEY CALLED PERTAINING TO CONSULT. NEW ORDERS RECEIVED FOR UA.
--- NOTE | 2019-02-05 07:38 | NUR ---
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 -JOÃO Gray
[2019-02-05 07:46] LABS: VITAMIN D, 25-HYDROXY 41.8 ng/mL (30-100)
--- NOTE | 2019-02-05 08:52 | NUR ---
Dr. Mahoney notified of wound care recommendations.
--- NOTE | 2019-02-05 11:06 | NUR ---
SURGERY CALLED REPORT TO THIS NURSE. PT HR HAS BEEN IN 130-140'S AND AFIBB ON THE MONITOR. DR OH CALLED AND NOTIFIED.
--- NOTE | 2019-02-05 11:45 | NUR ---
PT TRANSFERRED TO 4TH FLOOR. ROOM CHANGED TO 426. REPORT CALLED TO RIGOBERTO
--- NOTE | 2019-02-05 12:03 | NUR ---
PT TRANSFERRED TO , REPORT CALLED TO JOSUÉ LONG
--- NOTE | 2019-02-05 12:06 | NUR ---
PATIENT TRANSFERRED TO UNIT FROM 5E/OR PROCEDURE. REPORT RECEIVED, SEE SHIFT ASSESSMENTS FOR DETAILS.
--- NOTE | 2019-02-05 12:42 | NUR ---
[facility] OFFICE STAFF NOTIFIED OF AFIB RVR RATE 130'S - 140'S/IRREGULAR, DR. GUIDO ORDERING MARY CHAPMAN.
--- NOTE | 2019-02-05 12:45 | NUR ---
MEDICATED WITH PRN PO NORCO FOR GROIN/SCROTAL PAIN.
--- NOTE | 2019-02-05 12:53 | NUR ---
CARDIZEM BOLUS ADMINISTERED 5MG ORDERED, DRIP INFUSING AT 5ML/HR ORDERED. ADMINISTERED LOADING DOSE OF SANDOSTATIN 50MCG, DRIP INFUSING AT 50MCG/HR ORDERED, RATE TO BE REDUCED TO 25MCG/HR AT [address] MICHAELS'S ORDER. PATIENT EATING POPSICLES AND DRINKING ICE WATER ORDERED (ICE COLD DIET) PATIENT STATES ICE CREAM AND MILKSHAKES MAKE HIM SICK.
--- NOTE | 2019-02-05 13:10 | NUR ---
DR. ALEX NOTIFIED OF CONSULT, IN TO SEE THE PATIENT.
--- NOTE | 2019-02-05 13:45 | NUR ---
PRN PO NORCO EFFECTIVE, PER PATIENT.
--- NOTE | 2019-02-05 13:45 | NUR ---
HR REMAINS AFIB/IRREGULAR, RATE 120'S - 130'S, INCREASED RATE OF CARDIZEM DRIP TO 10ML/HR.
--- NOTE | 2019-02-05 15:00 | NUR ---
HR REMAINS AFIB/IRREGULAR RATE 110'S - 140'S; INCREASED RATE OF CARDIZEM DRIP TO 15ML/HR.
--- NOTE | 2019-02-05 17:44 | NUR ---
PATIENT HAVING FREQUENT DARK LIQUID STOOLS.
--- NOTE | 2019-02-05 18:23 | NUR ---
HR REMAINS AFIB/IRREGULAR RATE 90'S -120'S/IRREGULAR WITH CARDIZEM DRIP INFUSING AT 15ML/HR.
--- NOTE | 2019-02-05 19:51 | NUR ---
MEDICATED WITH PRN PO BENADRYL FOR ITCHING AND NORCO FOR PERIAREA SKIN PAIN (DENUDED FROM DIARRHEA INCONTINENCE).
--- NOTE | 2019-02-05 20:15 | NUR ---
PATIENT ASSESSMENT COMPLETED AT THIS TIME WITHOUT INCIDENT. PATIENT DENIES ANY CHEST PAIN OR SHORTNESS OF BREATH AT THIS TIME. PATIENT DID STATE THAT HE IS UNCOMFORTABLE FROM THE PAIN FROM HIS BUTTOCKS, CREAM APPLIED TO ENTIRE EXCORIATED AREA. PATIENT HAD BEEN PREVIOUSLY MEDICATED AT END OF DAYLIGHT SHIFT. CALL LIGHT WITHIN REACH, WILL CONTINUE TO MONITOR.
--- NOTE | 2019-02-05 23:29 | NUR ---
NOTIFIED DR. SIM OF PATIENT HEART RATE 50S-70S. STOPPED CARDIZEM AT THIS TIME. NO NEW ORDERS RECEIVED. WILL CONTINUE TO MONITOR.
[2019-02-06] VITALS: BP 101/56
[2019-02-06 04:29] LABS: BILIRUBIN NEGATIVE (NEGATIVE); BLOOD NEGATIVE (NEGATIVE); CLARITY SL CLOUDY (CLEAR); COLOR YELLOW (YELLOW); GLUCOSE NEGATIVE (NEGATIVE); KETONE NEGATIVE (NEGATIVE); LEUKO ESTERASE 2+ (NEGATIVE); NITRITE NEGATIVE (NEGATIVE); PH 5.5 (5.0-9.0); SPECIFIC GRAVITY 1.015 (1.005-1.030); UROBILINOGEN 0.2 E.U./dl (0.2-1.0)
--- NOTE | 2019-02-06 04:56 | NUR ---
Upon discharge recommend patient to follow up for wound care in outpatient setting continue current wound care orders at discharging facility.
[2019-02-06 05:31] LABS: WBC 16-20 wbc/hpf (0-5)
[2019-02-06 06:39] LABS: BASO # 0.1 10*3/uL (0.0-0.1); BASO % 0.8 % (0.0-1.0); EOS # 0.9 10*3/uL (0.0-0.4); EOS % 9.6 % (1.0-4.0); HEMOGLOBIN 7.7 g/dl (14.0-18.0); LYMPH # 1.8 10*3/uL (1.3-4.4); MEAN CELL VOLUME 96.2 fl (80.0-94.0); MEAN CORPUSCULAR HGB 29.6 pg (27.0-31.0); MEAN CORPUSCULAR HGB CONC 30.8 g/dl (33.0-37.0); MEAN PLATELET VOLUME 10.8 fl (9.6-12.3); MONO # 0.6 10*3/uL (0.1-1.0); MONO % 6.3 % (3.0-9.0); NEUT # 5.9 10*3/uL (2.3-7.9); NEUT % 63.2 % (47.0-73.0); NUCLEATED RED BLOOD CELL 0.3 % (0.0-0.0); PLATELET COUNT AUTOMATED 228 10*3/uL (130-400); RED CELL DISTRI WIDTH 18.7 % (0-14.5); WHITE BLOOD COUNT 9.3 10*3/uL (4.8-10.8)
[2019-02-06 06:40] LABS: CREATININE 3.67 mg/dL (0.70-1.30); POTASSIUM 3.6 mmol/L (3.5-5.1)
[2019-02-06 07:14] LABS: INTERNATIONAL NORM RATIO 4.2 (2.0-3.5)
--- NOTE | 2019-02-06 07:20 | NUR ---
ARRIVED ON SHIFT, INTRODUCED TO PATIENT, NO NEEDS VOICED AT THIS TIME. WHITE BOARDS UPDATED.
--- NOTE | 2019-02-06 08:55 | NUR ---
Updated clinicals faxed to [facility] for review. 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
--- NOTE | 2019-02-06 10:39 | NUR ---
CALL PLACED TO DR. FLOR TO ADVISE OF CONSULT.
[2019-02-06 12:00] VITALS: BP 112/68
--- NOTE | 2019-02-06 12:33 | NUR ---
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 AND WILL RETURN WHEN MEDICALLY STABLE. WILL CONTINUE TO FOLLOW.
--- NOTE | 2019-02-06 14:00 | NUR ---
PHYSICAL THERAPY Attempted to see pt for eval unavailabe as going for test/ultrasound will follow Yaneli French PT
--- NOTE | 2019-02-06 14:05 | NUR ---
Occupational therapy orders received and chart reviewed. Patient was out of the room at an ultrasound upon OT arrival. Will follow up when appropriate. Thank you. Chitra Barr OTR/L
[2019-02-06 16:00] VITALS: BP 95/41
--- NOTE | 2019-02-06 19:13 | NUR ---
RECEIVED CALL FROM DR. KELLEY, VERBAL ORDER RECEIVED FOR MAG LEVEL IN AM, AND TO START IV NS 60 CC/H X 1 BAG.
--- NOTE | 2019-02-06 19:19 | NUR ---
Shift chart check completed.
[2019-02-06 20:00] VITALS: BP 108/70
[2019-02-07] VITALS: BP 113/47
[2019-02-07 06:18] LABS: BASO % 0.3 % (0.0-1.0); EOS # 0.4 10*3/uL (0.0-0.4); EOS % 4.3 % (1.0-4.0); HEMATOCRIT 24.6 % (42.0-52.0); HEMOGLOBIN 7.3 g/dl (14.0-18.0); LYMPH # 1.4 10*3/uL (1.3-4.4); LYMPH % 14.6 % (27.0-41.0); MEAN CORPUSCULAR HGB 29.1 pg (27.0-31.0); MEAN CORPUSCULAR HGB CONC 29.7 g/dl (33.0-37.0); MEAN PLATELET VOLUME 10.8 fl (9.6-12.3); MONO # 0.4 10*3/uL (0.1-1.0); MONO % 4.3 % (3.0-9.0); NEUT # 7.2 10*3/uL (2.3-7.9); NEUT % 75.8 % (47.0-73.0); NUCLEATED RED BLOOD CELL 0.3 % (0.0-0.0); PLATELET COUNT AUTOMATED 240 10*3/uL (130-400); RED BLOOD COUNT 2.51 10*6/uL (4.50-5.90); RED CELL DISTRI WIDTH 18.8 % (0-14.5); WHITE BLOOD COUNT 9.5 10*3/uL (4.8-10.8)
[2019-02-07 06:25] LABS: CREATININE 4.1 mg/dL (0.70-1.30); POTASSIUM 3.8 mmol/L (3.5-5.1)
[2019-02-07 08:00] VITALS: BP 125/70
--- NOTE | 2019-02-07 08:20 | NUR ---
Patient updated clinicals faxed to [facility] for review. 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
--- NOTE | 2019-02-07 09:15 | NUR ---
Occupational therapy orders received and chart reviewed. Patient was in bed upon arrival and refused OT evaluation. Per patient, he "is not feeling good." Patient's PLOF was obtained. Will follow up with patient for completion of an OT evaluation when appropriate. Thank you. Chitra Barr, OTR/L
--- NOTE | 2019-02-07 09:47 | NUR ---
PHYSICAL THERAPY Attempted to see pt for evaluation refusing at present time pt unable to give consistent background regarding prior functional status. Pt last evaluated at [facility] on 12/30/18 at that time RLE WBAT and LLE was NWB per notes. Called and spoke with Dr. Matson from podiaty regarding any changes in weightbearing status and said to continue with status as per 12/30/18 and will contact residents at hospital to enter orders in pt's chart. Will follow Yaneli French PT
--- NOTE | 2019-02-07 11:52 | NUR ---
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
[2019-02-07 12:00] VITALS: BP 105/69
--- NOTE | 2019-02-07 13:06 | NUR ---
WAS UNABLE TO CATHETERIZE PATIENT. DR ARROYO NOTIFIED.
--- NOTE | 2019-02-07 15:40 | NUR ---
NOTIFIED DR CABALLERO OF CONSULT. STATED THAT SHE WOULD SEE HIM TOMORROW.
[2019-02-07 16:00] VITALS: BP 103/49
[2019-02-07 20:00] VITALS: BP 106/44
--- NOTE | 2019-02-07 22:30 | NUR ---
BSG 66 POPSICLE BEING EATEN.
[2019-02-08] VITALS: BP 111/61
--- NOTE | 2019-02-08 02:58 | NUR ---
24 HR chart check completed.
--- NOTE | 2019-02-08 06:00 | NUR ---
BSG 68 POPSICLE BEING EATEN.
[2019-02-08 06:31] LABS: BASO % 0.4 % (0.0-1.0); EOS # 0.8 10*3/uL (0.0-0.4); EOS % 8.9 % (1.0-4.0); HEMATOCRIT 23.4 % (42.0-52.0); HEMOGLOBIN 7.3 g/dl (14.0-18.0); LYMPH # 1.4 10*3/uL (1.3-4.4); LYMPH % 16.5 % (27.0-41.0); MEAN CELL VOLUME 98.7 fl (80.0-94.0); MEAN CORPUSCULAR HGB 30.8 pg (27.0-31.0); MEAN CORPUSCULAR HGB CONC 31.2 g/dl (33.0-37.0); MEAN PLATELET VOLUME 11.2 fl (9.6-12.3); MONO # 0.5 10*3/uL (0.1-1.0); MONO % 6.2 % (3.0-9.0); NEUT # 5.7 10*3/uL (2.3-7.9); NEUT % 66.8 % (47.0-73.0); NUCLEATED RED BLOOD CELL 0.5 % (0.0-0.0); PLATELET COUNT AUTOMATED 194 10*3/uL (130-400); RED BLOOD COUNT 2.37 10*6/uL (4.50-5.90); RED CELL DISTRI WIDTH 19.1 % (0-14.5); WHITE BLOOD COUNT 8.6 10*3/uL (4.8-10.8)
[2019-02-08 06:47] LABS: ALBUMIN 2.9 gm/dl (3.1-4.5); CREATININE 4.18 mg/dL (0.70-1.30); POTASSIUM 3.7 mmol/L (3.5-5.1); TOTAL PROTEIN 5.8 gm/dL (6.4-8.2)
[2019-02-08 07:40] LABS: INTERNATIONAL NORM RATIO 5.9 (2.0-3.5)
--- NOTE | 2019-02-08 07:47 | NUR ---
DR. NEUMANN NOTIFIED OF ELEVATED INR LEVEL OF 5.9, NO NEW ORDERS RECEIVED VIA TELEPHONE AT THIS TIME
[2019-02-08 08:00] VITALS: BP 112/50
[2019-02-08] MEDS ORDERED: PROTONIX40 MG PO (11:40)
[2019-02-08] MEDS ORDERED: Carafate1 GM/10 ML PO (11:40)
[2019-02-08] MEDS ORDERED: METOPROLOL TART50 M1 PO (11:40)
[2019-02-08] MEDS ORDERED: AMINOPHYLLIN200 MG PO (11:41)
[2019-02-08 12:00] VITALS: BP 109/53
--- NOTE | 2019-02-08 12:09 | NUR ---
PODIATRY AWARE THAT PATIENT WILL BE TRANFERED TO [place] TODAY FOR UROLOGY AND CONSULT FOR SECOND OPINION FOR VASCULAR SURGERY WAS NOT DONE PRIOR TO DISCHARGE. RECOMMEND FOR WOUND CARE TO LEFT HEEL SANTYL DAILY IF AVAILABLE, IF SANTYL UNAVILABLE, MEDIHONEY DAILY TO LEFT HEEL, COVER WITH DRY GAUZE, MAXORB FOR HEAVY DRAINAGE.
--- NOTE | 2019-02-08 12:42 | NUR ---
FAMILY AWARE THAT PATIENT TRANSFER TO [facility] AT 1330.
--- NOTE | 2019-02-08 12:44 | NUR ---
WENT IN TO PATIENTS ROOM TO TAKE PICTURES OF WOUNDS AND CHANGE DRESSINGS. PATIENT YELLED AT NURSE AND SAID "THEY JUST HURT MY FOOT DOING AN XRAY" PT HAS EXCORATION/WOUNDS IN GROIN, PULLED DOWN COVERS TO LOOK AT THOSE WOUNDS AND PATIENT WAS INCONTINET OF STOOL. CLEANED UP PATIENT, PUT THERAHONEY AND OPTIFOAM ON LEFT BUTTOCKS. PT THEN STATED, "YOU'VE DONE ENOUGH". PHOTOGRAPHS NOT TAKEN, DRESSING NOT CHANGED TO LEFT HEEL. PT REFUSED.
--- NOTE | 2019-02-08 13:33 | NUR ---
REPORT CALLED TO [facility]. AWARE THAT HE WILL BE PICKED UP BY AMBULANCE AT 1330
--- NOTE | 2019-02-08 13:49 | NUR ---
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
== END 2019-02-08 15:36 | disposition other institution (70) | DRG 377 ==
LOC: ED 11:44 → EDHOLD 15:40 → 4E 15:40 → 5E 15:40 → 4E 02-05 11:24
PROVIDERS: Emergency Medicine; Internal Medicine Gastroenterology; Internal Medicine Nephrology; ADMIT Family Medicine
PROC: 30233N1 Transfusion of Nonautologous Red Blood Cells into Peripheral Vein, Percutaneous Approach (ICD-10-PCS; 2019-02-04)
PROC: 30233K1 Transfusion of Nonautologous Frozen Plasma into Peripheral Vein, Percutaneous Approach (ICD-10-PCS; 2019-02-04)
PROC: 0W3P8ZZ Control Bleeding in Gastrointestinal Tract, Via Natural or Artificial Opening Endoscopic (ICD-10-PCS; 2019-02-04)
PROC: 0DB68ZX Excision of Stomach, Via Natural or Artificial Opening Endoscopic, Diagnostic (ICD-10-PCS; principal; 2019-02-05)
DX: K27.4 Chronic or unspecified peptic ulcer, site unspecified, with hemorrhage (principal); E43 Unspecified severe protein-calorie malnutrition; N17.0 Acute kidney failure with tubular necrosis; D62 Acute posthemorrhagic anemia; N18.4 Chronic kidney disease, stage 4 (severe); D68.9 Coagulation defect, unspecified; K29.71 Gastritis, unspecified, with bleeding; I48.91 Unspecified atrial fibrillation; Z66 Do not resuscitate; Z51.5 Encounter for palliative care; K21.9 Gastro-esophageal reflux disease without esophagitis; E78.5 Hyperlipidemia, unspecified; E11.42 Type 2 diabetes mellitus with diabetic polyneuropathy; M10.9 Gout, unspecified; I12.9 Hypertensive chronic kidney disease with stage 1 through stage 4 chronic kidney disease, or unspecified chronic kidney disease; D53.9 Nutritional anemia, unspecified; E11.22 Type 2 diabetes mellitus with diabetic chronic kidney disease; E11.69 Type 2 diabetes mellitus with other specified complication; M19.90 Unspecified osteoarthritis, unspecified site; D72.829 Elevated white blood cell count, unspecified; E11.65 Type 2 diabetes mellitus with hyperglycemia; E83.42 Hypomagnesemia; I25.10 Atherosclerotic heart disease of native coronary artery without angina pectoris; L89.629 Pressure ulcer of left heel, unspecified stage; N40.1 Benign prostatic hyperplasia with lower urinary tract symptoms; R33.8 Other retention of urine; E87.5 Hyperkalemia; E83.51 Hypocalcemia; E11.51 Type 2 diabetes mellitus with diabetic peripheral angiopathy without gangrene; B96.89 Other specified bacterial agents as the cause of diseases classified elsewhere; E83.9 Disorder of mineral metabolism, unspecified; Z79.01 Long term (current) use of anticoagulants; I69.30 Unspecified sequelae of cerebral infarction; Z87.891 Personal history of nicotine dependence; Z79.4 Long term (current) use of insulin; Z95.820 Peripheral vascular angioplasty status with implants and grafts; Z79.82 Long term (current) use of aspirin; I25.2 Old myocardial infarction